=== PATIENT | male | born 1960 | race Caucasian/White ===

== ENCOUNTER → 2017-08-27 07:10 | Outpatient (CLI) | payer OTHER, SELFPAY ==
[2017-08-27 10:29] LABS: Anion Gap 9 (5-15); BUN 15 mg/dL (7-18); BUN/Creat Ratio 12.5 RATIO (10-20); Calcium,Total 8.6 mg/dL (8.5-10.1); Chloride 106 mmol/L (98-107); Cholesterol 247 mg/dL (200); EST Glomerular Filtration Rate 66 mL/min (>60); Est Glom Filt Rate - Afr Amer 80 mL/min (>60); Glucose 165 mg/dL (74-106); High Density Lipoprotein 24 mg/dL; PSA,Total - Annual Screen 0.76 ng/mL (0.00-4.00); Potassium 3.8 mmol/L (3.5-5.1); Sodium Level 141 mmol/L (136-145); Triglycerides 809 mg/dL
== END ==
PROVIDERS: Family Provider Family Medicine; PCP Family Medicine; Visit Provider Family Medicine
DX: E78.5 Hyperlipidemia, unspecified (principal); Z12.5 Encounter for screening for malignant neoplasm of prostate
CPT/HCPCS: 36415; 80048; 80061; 84153; G0103

== ENCOUNTER 2017-09-14 09:05 | Day surgery (SDC) | payer OTHER, SELFPAY ==
[2017-09-14] VITALS (10 sets, daily range): BP systolic 85–131; BP diastolic 56–86; PULSE 46–62; RESP 16; TEMP 36.3–36.8; O2SAT 93–99; BMI 36.8
--- NOTE | 2017-09-14 | COLBX_PTH ---
PATIENT: LINDSAY WEIR LOC: EN U#:[id number] AGE/SX: 57/M ROOM: RE09/14/[address]: Dr. Georges Arroyo MD : 1960 BED: DIS: 09/14/2017 SPEC #: [id number] RECD: 09/14/17 13:55 STATUS: SRINATH REZoe #: [id number] NEDRA: 09/14/17 00:[address]: Georges Arroyo DEPT: SURGICAL PATHOLOGY RECD BY: Porter Bragg ENTERED: 09/14/17 13:55 SP TYPE: COLON BX OTHR DR: Dr. Sohail Wolf MD Tissues: Cecum, NOS Procedures: Surgery Specimen Level IV HEADER OPERATION: Colonoscopy PRE-OP DIAGNOSIS: Change in bowel habit TISSUE SUBMITTED: Cecum polyp MICROSCOPIC DIAGNOSIS Cecum polyp, biopsy: Fragments of tubular adenoma. SJ:freddy 09/17/17 MICROSCOPIC DESCRIPTION Slides are reviewed. GROSS DESCRIPTION Received in fixative is one container labeled with the patient's name and designated cecum polyp. The specimen consists of multiple irregular fragments of light rodriguez soft tissue that in aggregate measure 0.5 x 0.5 x 0.1 cm. The specimen is totally submitted in one cassette. / SJ:freddy 09/14/17 TC:1 CPT: 68935
--- NOTE | 2017-09-14 10:45 | OP.PCM_ITS ---
Problem List (1) Change in bowel habit Status: Acute Report of Operation Date of Procedure: 09/14/17 Pre-Operative Diagnosis: Change of bowel habit Post-Operative Diagnosis: Sessile polyp of the cecum. Extensive descending and sigmoid diverticulosis Surgery/Procedure Performed:: Colonoscopy with hot snare polypectomy Description of Surgical Findings:: Timeout and informed consent was obtained. 57-year-old gentleman was taken to the endoscopy suite. He was placed in a left lateral decubitus position. Throughout the procedure in aliquots he received a total of 100 mg Demerol and 5 mg of Versed is intravenous sedation. Digital exam performed. Moderate hemorrhoidal changes. 2+ smooth prostate. Flexible colonoscope inserted the rectum advanced through a somewhat tortuous sigmoid colon extensively involved with diverticulosis. The scope was then fairly readily advanced to the transverse colon. In order to get the scope to go to the cecum the patient had to be placed supine and transabdominal pressure was required. The cecum ileocecal valve however was nicely achieved. Bowel prep was good there was still some liquid stool but that could be aspirated. As the scope was gently withdrawn from the base of the cecum a small sessile 8 mm polyp was noted. Photographs were obtained. Hot snare was used to resect and retrieved. Because of the location of the polyp being all the way over the cecum I last placed a hemostatic clip. That was nicely positioned. The scope was then further withdrawn from the ascending transverse descending and sigmoid colon. There was rather extensive diverticulosis of the descending and sigmoid colon. I do not see any signs of inflammation. The scope was retroflexed within the rectum some moderate hemorrhoidal changes noted no active bleeding. Excess fluid and air was aspirated free the procedure was completed with the patient tolerating it well. Impression Sessile polyp of the cecum Extensive descending and sigmoid diverticulosis The patient's previous colonoscopy was 2009. Next colonoscopy recommended in 3- 5 years pending pathology. Symptoms may be based upon some low-grade diverticulitis though that is not proven on today's examination. The patient will be followed expectantly. Cc: Dr. Sohail Wolf Medications were given at 1016. The procedure was started at 1018. The cecum was reached at 1027. The procedure was completed at 1038. Georges Arroyo M.D., F.A.C.S.
== END 2017-09-14 11:43 | disposition home or self-care (01) ==
LOC: EN 09:06 → AC 09:07
PROVIDERS: Family Provider Family Medicine; PCP Family Medicine; Visit Provider Surgery
PROC: 0DJD8ZZ Inspection of Lower Intestinal Tract, Via Natural or Artificial Opening Endoscopic (ICD-10-PCS; CPT 45378; principal; 2017-09-14 10:10)
DX: D12.0 Benign neoplasm of cecum (principal); K57.30 Diverticulosis of large intestine without perforation or abscess without bleeding; R19.4 Change in bowel habit; E11.9 Type 2 diabetes mellitus without complications
CPT/HCPCS: 45384; 88305; 99152; 99153; J7120

== ENCOUNTER 2017-10-30 10:31 | Outpatient (RCR) | payer OTHER, SELFPAY | END 2017-11-02 23:59 | LOC: NS 10:31 | PROVIDERS: Family Provider Family Medicine; PCP Family Medicine; Visit Provider Family Medicine | DX: E11.9 Type 2 diabetes mellitus without complications (principal); Z71.3 Dietary counseling and surveillance | CPT/HCPCS: 97802 ==

== ENCOUNTER 2017-11-30 08:18 | Outpatient (RCR) | payer OTHER, SELFPAY | END 2017-12-02 23:59 | LOC: NS 08:18 | PROVIDERS: Family Provider Family Medicine; PCP Family Medicine; Visit Provider Family Medicine | DX: E11.9 Type 2 diabetes mellitus without complications (principal); Z71.3 Dietary counseling and surveillance | CPT/HCPCS: 97803 ==

== ENCOUNTER → 2018-03-27 11:41 | Outpatient (CLI) | payer OTHER, SELFPAY ==
[2018-03-27 14:56] LABS: Anion Gap 7 (5-15); BUN 16 mg/dL (7-18); BUN/Creat Ratio 13.2 RATIO (10-20); Calcium,Total 9.1 mg/dL (8.5-10.1); Chloride 106 mmol/L (98-107); Cholesterol 242 mg/dL (200); Creatinine, Serum 1.21 mg/dL (0.70-1.30); EST Glomerular Filtration Rate 66 mL/min (>60); Est Glom Filt Rate - Afr Amer 79 mL/min (>60); Glucose 107 mg/dL (74-106); High Density Lipoprotein 39 mg/dL; Potassium 4.2 mmol/L (3.5-5.1); Sodium Level 142 mmol/L (136-145); Thyroid Stim Hormone (TSH) 1.69 uIU/mL (0.358-3.74); Triglycerides 344 mg/dL; Very Low Density Lipoprotein 69 mg/dL (5-40)
--- OUTSIDE RECORDS SUMMARY | 2018-05-29 09:41 | XMS RPT_ITS ---
:1960 Author Organization OHIP Care Team Providers Name Role Phone Sohail Wolf Attending Unavailable Sohail Wolf Referring Unavailable [facility] Unavailable Maryann, Sohail Attending Unavailable Maryann, Sohail Referring Unavailable [place] edwards, [facility] Unavailable Cebul, Georges Attending Unavailable Maryann, Sohail Referring Unavailable Ranney, [facility] Unavailable Cebul, Georges Attending Unavailable Cebul, Georges Referring Unavailable [facility] Unavailable Cebul, Georges Attending Unavailable Cebul, Georges Referring Unavailable [facility], [facility] Unavailable Cindyl, Georges Consulting Unavailable Andrey Lozano Attending Unavailable Ranney, Christophbenji Referring Unavailable [place], [facility] Unavailable Maryann, Sohail Attending Unavailable [facility], [facility] Unavailable Maryann, Sohail Attending Unavailable [place] edwards, [facility] Unavailable Ranbull, Sohail Attending Unavailable [place] edwards, [facility] Unavailable PROBLEMS PROBLEMS DATE TYPE CONDITION / CODE ATTENDING STATUS SOURCE 10/05/2017 Unknown R19.4 - Change Georges Arroyo Active [place] in bowel habit / Community R19.4(ICD-10) Hospital Repository PROCEDURES PROCEDURES No Procedure Records FoundRESULTS RESULTS TESTOSTERONE, SERUM TOTAL Collected: 03/27/2018 Status: F Source: [place] 11:55 AM [facility] REPOSITORY Order Comment: Order Date: 10/04/17 Order Info: 2986-8 - WENDY TYPE CODE TESTS RESULT OUT OF REFERENCE UNITS RANGE LAB L509.3000 ng/dL Testosterone Normal 429.13 Result Comment: NORMAL REFERENCE RANGES MALE AGE <50 123.06 - 813.86 ng/dL MALE AGE >50 89.98 - 780.10 ng/dL FEMALE PREMENOPAUSE AGE 21 - 60 9.01 - 47.94 ng/dL FEMALE POSTMENOPAUSE AGE 45 - 89 <7.00 - 45.62 ng/dL REFERENCE RANGE AND METHODOLOGY CHANGED 02/21/2017 Performed By: #### L509.3000, L500.2500, L500.4100, L501.9520 #### [place] [facility] [address] [place], [address] BASIC METABOLIC Collected: 03/27/2018 Status: F Source: [place] PROFILE (BMP) 11:55 AM [facility] REPOSITORY Order Comment: Order Date: 10/04/17 Order Info: 0667-1 - BMP Order Info: 73244-0 - LIPID Order Info: 3016-3 - TSH TYPE CODE TESTS RESULT OUT OF RANGE REFERENCE UNITS LAB L501.0100 74-106 mg/dL High GLU 107 Result Comment: Fasting Glucose result from 100 to 125 mg/dL suggests IMPAIRED HOMEOSTASIS per A.D.A. criteria. Please note revised GLUCOSE reference range effective 2017. LAB L501.1000 7-18 mg/dL Normal BUN 16 LAB L501.1100 0.70-1.30 mg/dL Normal CREAT,SERUM 1.21 Result Comment: The validity of the calculated GFR AND GFRAA in patients over 70 years has not been determined. Clinical correlation is essential. LAB L501.1110 >60 mL/min Normal EST GFR 66 Result Comment: Non- GFR Calc LAB L501.1115 >60 mL/min Normal EST GFR - AA 79 Result Comment: GFR Calc LAB L501.1300 10-20 RATIO Normal BUN/CRE 13.2 LAB L501.2200 8.5-10.1 mg/dL CA Normal 9.1 LAB L501.5300 136-145 mmol/L NA Normal 142 LAB L501.5600 3.5-5.1 mmol/L K Normal 4.2 LAB L501.5900 98-107 mmol/L CL Normal 106 LAB L501.6100 21.0-32.0 mmol/L Normal CO2 29.0 LAB L501.6200 5-15 Normal GAP 7 Performed By: #### L509.3000, L500.2500, L500.4100, L501.9520 #### [facility] [address] [place], [address] LIPID PROFILE Collected: 03/27/2018 Status: F Source: [place] 11:55 AM [facility] REPOSITORY Order Comment: Order Date: 10/04/17 Order Info: 0667-1 - BMP Order Info: 07288-4 - LIPID Order Info: 3016-3 - TSH TYPE CODE TESTS RESULT OUT OF RANGE REFERENCE UNITS LAB L501.4900 200 mg/dL High CHOL 242 Result Comment: <200 mg/dL Desirable 200-240 mg/dL Borderline >240 mg/dL High Risk LAB L501.5000 mg/dL High TRIG 344 Result Comment: The drugs N-Acetylcysteine and Metamizole may falsely depress this assay. Serum Triglycerides Reference Interval Normal <150 mg/dL Borderline high 150 - 199 mg/dL High 200 - 499 mg/dL Very High > or = 500 mg/dL LAB L501.6400 mg/dL Low HDL 39 Result Comment: The drugs N-Acetylcysteine and Metamizole may falsely depress this assay. Reference Range HDL <40 mg/dL Low HDL Cholesterol HDL >or= 60 mg/dL High HDL Cholesterol LAB L501.6500 0-130 mg/dL High LDL 134 LAB L501.6600 5-40 mg/dL High VLDL 69 Performed By: #### L509.3000, L500.2500, L500.4100, L501.9520 #### [facility] [address] [place], [address] THYROID STIM HORMONE Collected: 03/27/2018 Status: F Source: [place] (TSH) 11:55 AM [facility] REPOSITORY Order Comment: Order Date: 10/04/17 Order Info: 0667-1 - BMP Order Info: 98852-9 - LIPID Order Info: 3016-3 - TSH TYPE CODE TESTS RESULT OUT OF RANGE REFERENCE UNITS LAB L501.9520 0.358-3.74 uIU/mL Normal TSH 1.69 Performed By: #### L509.3000, L500.2500, L500.4100, L501.9520 #### [facility] [address] [facility] [place], [address] OPERATIVE REPORT Observed: 09/14/2017 Status: F Source: [place] 10:45 AM [facility] REPOSITORY [facility] Medical Records Department [address] [place] [address] Operative Report 09/14/17 1041 MR#: [id number] Acct: [id number] Name: LINDSAY WEIR Rep #: [id number] : 1960 57 From: Georges Arroyo MD PCP: Sohail Wolf MD Status: REG SDC Y Location: AC11-1 Problem List (1) Change in bowel habit Status: Acute Report of Operation Date of Procedure: 09/14/17 Pre-Operative Diagnosis: Change of bowel habit Post-Operative Diagnosis: Sessile polyp of the cecum. Extensive descending and sigmoid diverticulosis Surgery/Procedure Performed:: Colonoscopy with hot snare polypectomy Description of Surgical Findings:: Timeout and informed consent was obtained. 57-year-old gentleman was taken to the endoscopy suite. He was placed in a left lateral decubitus position. Throughout the procedure in aliquots he received a total of 100 mg Demerol and 5 mg of Versed is intravenous sedation. Digital exam performed. Moderate hemorrhoidal changes. 2+ smooth prostate. Flexible colonoscope inserted the rectum advanced through a somewhat tortuous sigmoid colon extensively involved with diverticulosis. The scope was then fairly readily advanced to the transverse colon. In order to get the scope to go to the cecum the patient had to be placed supine and transabdominal pressure was required. The cecum ileocecal valve however was nicely achieved. Bowel prep was good there was still some liquid stool but that could be aspirated. As the scope was gently withdrawn from the base of the cecum a small sessile 8 mm polyp was noted. Photographs were obtained. Hot snare was used to resect and retrieved. Because of the location of the polyp being all the way over the cecum I last placed a hemostatic clip. That was nicely positioned. The scope was then further withdrawn from the ascending transverse descending and sigmoid colon. There was rather extensive diverticulosis of the descending and sigmoid colon. I do not see any signs of inflammation. The scope was retroflexed within the rectum some moderate hemorrhoidal changes noted no active bleeding. Excess fluid and air was aspirated free the procedure was completed with the patient tolerating it well. Impression Sessile polyp of the cecum Extensive descending and sigmoid diverticulosis The patient's previous colonoscopy was 2009. Next colonoscopy recommended in 3-5 years pending pathology. Symptoms may be based upon some low-grade diverticulitis though that is not proven on today's examination. The patient will be followed expectantly. Cc: Dr. Sohail Wolf Medications were given at 1016. The procedure was started at 1018. The cecum was reached at 1027. The procedure was completed at 1038. Georges Arroyo M.D., F.A.C.S. 09/14/17 1045 <Electronically signed by Georges Arroyo MD> Date Georges Arroyo MD CC: Sohail Wolf MD; Georges Arroyo MD Signed COLON BIOPSY (CHOOSE Observed: 09/14/2017 Status: F Source: [place] SITE) 12:00 AM [facility] REPOSITORY Patient: LINDSAY WEIR : 1960 (57/M) Acct Num: [id number] Phys: Dina DELATORRE,Georges Unit Num: [id number] Loc: EN Specimen: [id number] Received: 09/14/17 - 1355 Spec Type: COLON BX TISSUES TISSUES: Cecum, NOS GROSS DESCRIPTION Received in fixative is one container labeled with the patient's name and designated cecum polyp. The specimen consists of multiple irregular fragments of light rodriguez soft tissue that in aggregate measure 0.5 x 0.5 x 0.1 cm. The specimen is totally submitted in one cassette. / SJ:freddy 09/14/17 TC:1 CPT: 59409 HEADER OPERATION: Colonoscopy PRE-OP DIAGNOSIS: Change in bowel habit TISSUE SUBMITTED: Cecum polyp MICROSCOPIC DESCRIPTION Slides are reviewed. MICROSCOPIC DIAGNOSIS Cec[place] polyp, biopsy: Fragments of tubular adenoma. SJ:freddy 09/17/17 Signed Justin Oliver 09/17/17 <signature on file> Performed By: #### PCOLBX #### [facility] [address] [place], [place] [address]shadi. [place], [place], [id number] SURGERY VISIT REPORT Observed: 09/08/2017 Status: F Source: [place] 10:13 AM [facility] REPOSITORY [facility] [address] [place], [place] [address] OFFICE VISIT Date of Service: 09/08/17 MR#: [id number] Acct: [id number] Name: LINDSAY WEIR Rep #: [id number] : 1960 Provider: Georges Arroyo MD Age/Sex: 57/M Location: [facility] Status: Signed Intake Vital Signs09/08/17 Height 5 ft 10 in 09/08/17 Weight: 262 lb 09/08/17 Body Mass Index (BMI) 37.5 Intake Visit Reasons: Inguinal Hernia Air Sampling And Monitoring Required: No Is patient in pain?: No Allergies cephalexin [From Keflex] Allergy (Mild, Verified 09/08/17 08:50) Rash penicillin Allergy (Mild, Uncoded 09/08/17 08:50) Anaphylaxis Medications metformin 500 mg tablet 500 mg PO QDAY tab 09/08/17 [History Confirmed 09/08/17] PFSH Medical History Diabetes (Acute) Surgical History H/O hernia repair (Acute) Social History Smoking Status: Never smoker alcohol intake: current alcohol intake frequency: holidays/special occasions only HPI HPI HPI: LINDSAY WEIR, is a 57 M who presents to the office today for surgical consultation regarding change of bowel habits and possible inguinal hernia. The patient's is Ela. The patient is a 57-year-old gentleman. Over the past 2-4 months he has had a change of bowel habits. Complains of excessive flatus. He also complains of the inability to assist with pushing to defecate. He has not noticed any bright red blood per rectum or melena. He has had a intentional weight loss. There was concern on physical exam that he might have a direct inguinal hernia adding to his difficulty. Of additional note is that the patient has significantly elevated triglycerides and more mildly elevated cholesterol. The patient also has recently been initiated on type 2 diabetes medication. 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 He had a maternal grandfather who had colon cancer. The patient did have a previous colonoscopy by Dr. Johnson approximately the year 2009. The patient's had a remote right inguinal hernia repaired by Dr. Lisandro Arroyo II. he distinctly remembers how that felt with bulging and he has not experienced the same recent phenomena. The patient is referred to me today by Dr. Sohail Wolf his primary care physician for surgical consultation regarding possible groin hernias as the source of the patient's change of bowel habits and inability to provide pressure with defecation. A written copy of my surgical consult and recommendations will be returned to Dr. Sohail Wolf ROS General General: Yes weight change and fatigue; no appetite, colon cancer, breast cancer or weakness HEENT HEENT: No difficulty swallowing, eye injury, eye surgery, swollen glands or hoarseness Endo Endocrine: Yes diabetes mellitus; no thyroid disease, thyroid cancer, Hair loss, heat intolerance or cold intolerance Skin Skin: No rash or changing moles Breast Breast: No left breast lump, right breast lump, nipple discharge, breast pain, abnormal mammogram, abnormal US or breast enlargement Musc Musculoskeletal: No back problems, arthritis, rheumatoid arthritis, gout or joint pain Cardio Cardiovascular: No murmur, pacemaker, heart disease, atrial fibrillation, high blood pressure, heart attack, heart stent, palpitations, shortness of breat with exertion or chest pain Psych Psychiatric: No depression, anxiety or hearing voices Resp Respiratory: No shortness of breath, No sleep apnea, No cough, No COPD, No asthma, No emphysema, No wheezing Gastro Gastrointestinal: No abdominal pain, No nausea or vomiting, No diarrhea, No constipation, No blood in stool, No acid reflux, No hemorrhoids, No ulcers, No gallbladder problem, No black,tarry stools Rod Hematologic: No blood thinners, No blood disorders, No bleeding, No anemia, No blood clots Neuro Neurologic: No system reviewed and no additional complaints, except as docu, No as per HPI, No abnormal walking, No abnormal hearing, No abnormal movements, No abnormal speech, No behavioral changes, No burning sensations, No confusion, No seizure-like activity, No unsteadiness, No dizziness, No localized weakness, No frequent falls, No headache(s), No lack of coordination, No loss of vision, No memory loss, No numbness, No other visual disturbances, No radiating pain, No restless legs, No sensory deficit, No fainting, No tingling, No tremor(s), No weakness, No other Exam Const General: cooperative, healthy appearing, comfortable, no acute distress Nutritional Appearance: obese Orientation: alert, awake, oriented x3 HENMT Head: normal to inspection Eyes General: appearance normal, both eyes and all related structures Neck Neck: normal visual inspection Chest Chest palpation AND inspection: normal inspection of the chest Breast Palpation: No nipple discharge Resp Effort AND Inspection: normal respiratory effort Auscultation: clear to auscultation bilaterally Cardio Rate: regular rate Rhythm: regular rhythm Heart Sounds: no murmurs GI Palpation: soft, no hepatosplenomegaly Auscultation: normal bowel sounds Other: : Slight given the right groin consistent with a small direct hernia. Atrophic testicle but descended. No focal tenderness. No mass. Left groin is more solid. Very slight weakness at the internal ring. Atrophic left testicle Musc Cervical Spine: normal cervical lordosis Skin General: no rashes or lesions noted Neuro Cranial Nerves: CN's II-XI intact bilaterally Extrem General: no clubbing, cyanosis or edema Psych Affect: normal affect Assessment AND Plan Problems 1. Change in bowel habit R19.4 Plan The patient has a slight given the right groin consistent with a direct hernia. He has slight weakness at the left internal ring consistent with a small left inguinal hernia. I do not believe however that these findings would correlate with the patient's bowel habit change. The patient states that he has had a previous right inguinal herniorrhaphy remotely. He denies fever or signs or symptoms that would suggest diverticulitis. He has not noticed any blood per rectum. However the change of bowel habits is actually his primary concern. I am recommending to him a colonoscopy with possible biopsy or polypectomy is indicated. He is aware of the technique, benefits, risks, alternatives. He has had an opportunity to ask and have questions answered. In an effort to expedite his care we will add him on to our next endoscopy list which is this coming week. I very much appreciate the kind opportunity of assisting with his surgical care. Cc: Dr. Sohail Arroyo M.D., F.A.C.S. Coding Level of Care Code Comprehensive,moderate Diagnoses Change in bowel habit R19.4 09/08/17 1013 <Electronically signed by Georges Arroyo MD> Date Georges Dean Signature: Date (if applicable) CC: Sohail Wolf MD BASIC METABOLIC Collected: 08/27/2017 Status: F Source: [place] PROFILE (BMP) 7:20 AM [facility] REPOSITORY Order Comment: Order Date: 07/16/17 Order Info: 0667-1 - BMP Order Info: 50945-5 - LIPID Order Info: 2857-1 - PSA TYPE CODE TESTS RESULT OUT OF RANGE REFERENCE UNITS LAB L501.0100 74-106 mg/dL High GLU 165 Result Comment: Fasting Glucose result greater than or equal to 126 mg/dL suggests DIABETES MELLITUS per A.D.A. criteria. Please note revised GLUCOSE reference range effective 2017. LAB L501.1000 7-18 mg/dL Normal BUN 15 LAB L501.1100 0.70-1.30 mg/dL Normal CREAT,SERUM 1.20 Result Comment: The validity of the calculated GFR AND GFRAA in patients over 70 years has not been determined. Clinical correlation is essential. LAB L501.1110 >60 mL/min Normal EST GFR 66 Result Comment: Non- GFR Calc LAB L501.1115 >60 mL/min Normal EST GFR - AA 80 Result Comment: GFR Calc LAB L501.1300 10-20 RATIO Normal BUN/CRE 12.5 LAB L501.2200 8.5-10.1 mg/dL CA Normal 8.6 LAB L501.5300 136-145 mmol/L NA Normal 141 LAB L501.5600 3.5-5.1 mmol/L K Normal 3.8 LAB L501.5900 98-107 mmol/L CL Normal 106 LAB L501.6100 21.0-32.0 mmol/L Normal CO2 26.0 LAB L501.6200 5-15 Normal GAP 9 Performed By: #### L500.2500, L500.4100, L501.9910 #### [facility] [address] [place], [address] LIPID PROFILE Collected: 08/27/2017 Status: F Source: [place] 7:20 AM [facility] REPOSITORY Order Comment: Order Date: 07/16/17 Order Info: 0667-1 - BMP Order Info: 54460-2 - LIPID Order Info: 2857-1 - PSA TYPE CODE TESTS RESULT OUT OF RANGE REFERENCE UNITS LAB L501.4900 200 mg/dL High CHOL 247 Result Comment: <200 mg/dL Desirable 200-240 mg/dL Borderline >240 mg/dL High Risk LAB L501.5000 mg/dL High TRIG 809 Result Comment: The drugs N-Acetylcysteine and Metamizole may falsely depress this assay. TRIGLYCERIDE IS GREATER THAN 400 mg/dL. LDL RESULT IS INVALID AND WILL NOT BE REPORTED. Serum Triglycerides Reference Interval Normal <150 mg/dL Borderline high 150 - 199 mg/dL High 200 - 499 mg/dL Very High > or = 500 mg/dL LAB L501.6400 mg/dL Low HDL 24 Result Comment: The drugs N-Acetylcysteine and Metamizole may falsely depress this assay. Reference Range HDL <40 mg/dL Low HDL Cholesterol HDL >or= 60 mg/dL High HDL Cholesterol LAB L501.6500 0-130 mg/dL Test Normal not performed LDL LAB L501.6600 5-40 mg/dL Test Normal not performed VLDL Performed By: #### L500.2500, L500.4100, L501.9910 #### [facility] [address] [place], [address] PSA,TOTAL - ANNUAL Collected: 08/27/2017 Status: F Source: [place] SCREEN 7:20 AM [facility] REPOSITORY Order Comment: Order Date: 07/16/17 Order Info: 0667-1 - BMP Order Info: 97405-5 - LIPID Order Info: 2857-1 - PSA TYPE CODE TESTS RESULT OUT OF RANGE REFERENCE UNITS LAB L501.9910 0.00-4.00 ng/mL Normal PSA,TOT 0.76 SCREEN Result Comment: This test was performed using the TPSA assay method for the [employer] chemistry system. Values obtained with different assay methods cannot be used interchangably. When changing PSA assays in the course of monitoring a patient, additional sequential testing should be carried out to confirm baseline values. Performed By: #### L500.2500, L500.4100, L501.9910 #### [facility] [address] [place], [address] ALLERGIES ALLERGIES DATE TYPE / CODE NAME / CODE REACTION SEVERITY SOURCE Drug cephalexin/F006 Rash [place] 8 Allergy/329092949( 886265(RXNORM) [facility]) Hospital Repository Miscellaneous penicillin Anaphylaxis [place] 8 Allergy/561780485( [facility] Hospital Repository ENCOUNTERS ENCOUNTERS ADMIT/DISCHARGE ACCOUNT ADMITTING ENCOUNTER LOCATION SOURCE NUMBER CLASS 03/27/2018 [id number] Ambulatory [place] 5 [facility] ing:MTLAB Repository 12/13/2017 [id number] Ambulatory [place] 0 [facility] ing:NS Repository 11/30/2017/ [id number] Ambulatory [place] 8 1 [facility] ing:NS Repository 10/30/2017/ [id number] Ambulatory [place] 8 9 [facility] ing:NS Repository 10/22/2017/ [id number] Ambulatory BMSBuilding:B [place] 8 8 MS.[facility] Repository 09/14/2017/ [id number] Ambulatory [place] 8 8 [facility] ing:EN Repository 09/14/2017 [id number] Ambulatory BMSBuilding:B [place] 0 MS.CF.[facility] Repository 09/08/2017/ [id number] Ambulatory BMSBuilding:B [place] 8 1 MS.[facility] Repository 08/27/2017 [id number] Ambulatory [place] 8 [facility] ing:MTLAB Repository PAYERS PAYERS ENCOUNTER GUARANTOR PAYER SUBSCRIBER SOURCE 03/27/2018 [place] Robert Primary Insurance:KAYLIE [id number] [facility] LUIS AMANDOB: [facility] [address], Number: [id number] [address]Bqz: [id number] Repository Date:4268-45-16MF [address]OX (TB) [id number], [place] [address]TL: CHECK WEBSITE 03/27/2018 Secondary NOT GIVENUNK [place] Insurance:SELF PAY [facility] Number: Effective Repository Date:2018-03-27 12/13/2017 LINDSAY D Primary LINDSAY D [place] [id number] CR Insurance:MEDICAL AUKERMANDOB: [place] [id number] [place] [address]Wyz: Number: Repository [id number] (HP) Date:6601-94-50ZO [address] [address]UL: 12/13/2017 Secondary NOT GIVENUNK [place] Insurance:SELF PAY [facility] Number: Effective Repository Date:2017-12-03 11/30/2017 LINDSAY D Primary LINDSAY D [place] [id number] CR Insurance:MEDICAL AUKERMANDOB: [address] [id number] [facility] [place] [address]Xrc: Number: Repository [id number] (HP) Date:8289-66-24AO [address] [address]XV: 11/30/2017 Secondary NOT GIVENUNK [place] Insurance:SELF PAY [facility] Number: Effective Repository Date:2017-11-03 10/30/2017 LINDSAY D Primary LINDSAY D [place] [id number] CR Insurance:MEDICAL AUKERMANDOB: [address] [id number] [facility] [place] [address]Kyr: Number: Repository [id number] (HP) Date:1236-95-30[address] [place] [address]NF: 10/30/2017 Secondary NOT GIVENUNK [place] Insurance:SELF PAY [facility] Number: Effective Repository Date:2017-10-29 10/22/2017 LINDSAY D Primary LINDSAY D [place] [id number] CR Insurance:MEDICAL AUKERMANDOB: [place] [id number] [address]Hxt: Number: Repository [id number] (HP) Date:9503-80-18LY [address] [address]KQ: 10/22/2017 Secondary NOT GIVENUNK [place] Insurance:SELF PAY [facility] Number: Effective Repository Date:2017-10-22 09/14/2017 LINDSAY D Primary LINDSAY D [place] [id number] CR Insurance:MEDICAL AUKERMANDOB: [address] [id number] [address]Mjb: Number: Repository [id number] (HP) Date:4760-27-14NZ [address] [address]BG: 09/14/2017 Secondary NOT GIVENUNK [place] Insurance:SELF PAY [facility] Number: Effective Repository Date:2017-09-10 09/14/2017 LINDSAY D Primary LINDSAY D [place] [id number] CR Insurance:MEDICAL AUKERMANDOB: [address] [id number] [facility] [address]Ybg: Number: Repository [id number] (HP) Date:7460-99-64EI [address] [address]VR: 09/14/2017 Secondary NOT GIVENUNK [place] Insurance:SELF PAY [facility] Number: Effective Repository Date:2017-09-14 09/08/2017 LINDSAY D Primary LINDSAY D [place] [id number] CR Insurance:MEDICAL AUKERMANDOB: [address] [id number] [facility] [address]Cye: Number: Repository [id number] (HP) Date:[id number] [address] [id number]: 09/08/2017 Secondary NOT GIVENUNK Pepe Insurance:SELF PAY [facility] Number: Effective Repository Date:2017-09-08 08/27/2017 LINDSAY Robert Primary LINDSAY Cantu [id number] CR Insurance:MEDICAL AUKERMANDOB: [address] [id number] [address]Yex: Number: Repository [id number] (HP) Date:[id number] [address] [place] [id number]: 08/27/2017 Secondary [place]HI [place] Insurance:SELF PAY [facility] Number: Effective Repository Date:2017-08-27
== END ==
PROVIDERS: Family Provider Family Medicine; PCP Family Medicine; Referring Provider Family Medicine; Visit Provider Family Medicine
DX: E11.9 Type 2 diabetes mellitus without complications (principal)
CPT/HCPCS: 36415; 80048; 80061; 84403; 84443

== ENCOUNTER → 2018-06-25 09:46 | Outpatient (CLI) | payer OTHER, SELFPAY ==
[2018-06-26 16:49] LABS: Rubeola IgG Ab 76.2 AU/mL (Immune >29.9)
== END ==
PROVIDERS: Family Provider Family Medicine; PCP Family Medicine; Referring Provider Family Medicine; Visit Provider Family Medicine
DX: Z11.59 Encounter for screening for other viral diseases (principal)
CPT/HCPCS: 36415; 86765

== ENCOUNTER → 2018-09-19 08:08 | Outpatient (CLI) | payer OTHER, SELFPAY ==
[2017-09-14 09:38] VITALS: BMI 36.8
[2018-09-19 10:35] LABS: ALB/GLOB Ratio 1.2 RATIO (0.9-2.4); AST(SGOT) 19 U/L (15-37); Alanine Aminotransfer ALT/SGPT 32 U/L (16-61); Albumin, Serum 3.8 g/dL (3.2-5.0); Alkaline Phosphatase 39 U/L (45-117); Anion Gap 5 (5-15); BUN 16 mg/dL (7-18); BUN/Creat Ratio 12.7 RATIO (10-20); Calcium,Total 8.8 mg/dL (8.5-10.1); Chloride 106 mmol/L (98-107); Cholesterol 230 mg/dL (200); Creatinine, Serum 1.26 mg/dL (0.70-1.30); EST Glomerular Filtration Rate 62 mL/min (>60); Est Glom Filt Rate - Afr Amer 76 mL/min (>60); Globulin 3.1 g/dL (2.2-4.2); Glucose 116 mg/dL (74-106); High Density Lipoprotein 38 mg/dL; Potassium 4.1 mmol/L (3.5-5.1); Protein, Total 6.9 g/dL (6.4-8.2); Sodium Level 138 mmol/L (136-145); Triglycerides 305 mg/dL; Very Low Density Lipoprotein 61 mg/dL (5-40)
== END ==
PROVIDERS: Family Provider Family Medicine; PCP Family Medicine; Referring Provider Family Medicine; Visit Provider Family Medicine
DX: E11.9 Type 2 diabetes mellitus without complications (principal); R68.82 Decreased libido
CPT/HCPCS: 36415; 80053; 80061; 84403

== ENCOUNTER → 2019-03-18 07:09 | Outpatient (CLI) | payer OTHER, SELFPAY ==
[2019-03-18 10:45] LABS: ALB/GLOB Ratio 1.1 RATIO (0.9-2.4); AST(SGOT) 38 U/L (15-37); Alanine Aminotransfer ALT/SGPT 66 U/L (16-61); Albumin, Serum 3.6 g/dL (3.2-5.0); Alkaline Phosphatase 46 U/L (45-117); Anion Gap 3 (5-15); BUN 16 mg/dL (7-18); BUN/Creat Ratio 11.9 RATIO (10-20); Calcium,Total 9.1 mg/dL (8.5-10.1); Chloride 106 mmol/L (98-107); Cholesterol 240 mg/dL (200); Creatinine, Serum 1.35 mg/dL (0.70-1.30); EST Glomerular Filtration Rate 58 mL/min (>60); Est Glom Filt Rate - Afr Amer 70 mL/min (>60); Globulin 3.4 g/dL (2.2-4.2); Glucose 154 mg/dL (74-106); High Density Lipoprotein 36 mg/dL; PSA,Total - Annual Screen 0.95 ng/mL (0.00-4.00); Potassium 4.2 mmol/L (3.5-5.1); Sodium Level 138 mmol/L (136-145); Triglycerides 412 mg/dL
== END ==
PROVIDERS: Family Provider Family Medicine; PCP Family Medicine; Referring Provider Family Medicine; Visit Provider Family Medicine
DX: E11.9 Type 2 diabetes mellitus without complications (principal); E78.5 Hyperlipidemia, unspecified; Z12.5 Encounter for screening for malignant neoplasm of prostate
CPT/HCPCS: 36415; 80053; 80061; 84153; G0103

== ENCOUNTER → 2019-06-18 08:12 | Outpatient (CLI) | payer OTHER, SELFPAY ==
[2017-09-14 09:38] VITALS: BMI 36.8
[2019-06-18 10:23] LABS: ALB/GLOB Ratio 1.2 RATIO (0.9-2.4); AST(SGOT) 26 U/L (15-37); Alanine Aminotransfer ALT/SGPT 53 U/L (16-61); Alkaline Phosphatase 68 U/L (45-117); Anion Gap 5 (5-15); BUN 13 mg/dL (7-18); BUN/Creat Ratio 10.8 RATIO (10-20); Chloride 105 mmol/L (98-107); Cholesterol 139 mg/dL (200); EST Glomerular Filtration Rate 66 mL/min (>60); Est Glom Filt Rate - Afr Amer 80 mL/min (>60); Globulin 3.2 g/dL (2.2-4.2); Glucose 119 mg/dL (74-106); High Density Lipoprotein 36 mg/dL; Potassium 3.8 mmol/L (3.5-5.1); Protein, Total 7.2 g/dL (6.4-8.2); Sodium Level 139 mmol/L (136-145); Triglycerides 241 mg/dL; Very Low Density Lipoprotein 48 mg/dL (5-40)
[2019-06-18 10:26] LABS: Hemoglobin A1c 6.6 % (4.2-6.3)
== END ==
PROVIDERS: PCP Family Medicine; Referring Provider Family Medicine; Visit Provider Family Medicine
DX: E78.5 Hyperlipidemia, unspecified (principal); E11.9 Type 2 diabetes mellitus without complications; R79.89 Other specified abnormal findings of blood chemistry
CPT/HCPCS: 36415; 80053; 80061; 83036

== ENCOUNTER → 2019-12-15 07:01 | Outpatient (CLI) | payer OTHER, SELFPAY ==
[2019-12-15 10:31] LABS: Anion Gap 5 (5-15); BUN 16 mg/dL (7-18); BUN/Creat Ratio 13.2 RATIO (10-20); Calcium,Total 8.7 mg/dL (8.5-10.1); Chloride 108 mmol/L (98-107); Cholesterol 168 mg/dL (200); Creatinine, Serum 1.21 mg/dL (0.70-1.30); EST Glomerular Filtration Rate 65 mL/min (>60); Est Glom Filt Rate - Afr Amer 79 mL/min (>60); Glucose 106 mg/dL (74-106); High Density Lipoprotein 44 mg/dL; Potassium 3.8 mmol/L (3.5-5.1); Sodium Level 141 mmol/L (136-145); Triglycerides 238 mg/dL; Very Low Density Lipoprotein 48 mg/dL (5-40)
== END ==
PROVIDERS: PCP Family Medicine; Referring Provider Family Medicine; Visit Provider Family Medicine
DX: E11.9 Type 2 diabetes mellitus without complications (principal)
CPT/HCPCS: 36415; 80048; 80061

== ENCOUNTER → 2019-12-26 15:03 | Outpatient (CLI) | payer OTHER, SELFPAY ==
[2017-09-14 09:38] VITALS: BMI 36.8
[2019-12-26 18:03] LABS: Absolute Lymphocyte Count 1.71 X10^3/uL (0.83-4.51); Absolute Neutrophil Count 3.3 X10^3/uL (2.0-7.7); Basophil# 0.07 X10^3/uL; Basophil% 1.2 % (0-1); Eosinophils% 5.1 % (0-5); Hematocrit 43.2 % (40-54); Hemoglobin 14.1 g/dL (13.0-16.5); Lymphocyte # 1.71 X10^3/ul (4.0); Lymphocyte % 29.1 % (19-41); Mean Corp Hgb Conc 32.6 g/dL (32-36); Mean Corpuscular Hgb 29.6 pg (27.0-32.0); Mean Corpuscular Volume 90.8 fL (80-94); Mean Platelet Vol. 10.5 fl (6.2-12.0); Monocyte# 0.52 X10^3/uL; Monocyte% 8.8 % (0-10); NRBC Flagged by Analyzer 0 % (0-5); Neutrophil # 3.26 X10^3/uL (2.7-7.7); Neutrophil % 55.5 % (47-70); Platelet Count 177 K/mm3 (150-450); RBC Distribution Width CV 12.5 % (11.6-14.6); RBC Distribution Width SD 41.4 fl (35.1-43.9); Red Blood Count 4.76 M/mm3 (4.6-6.2); White Blood Count 5.9 K/mm3 (4.4-11.0)
[2019-12-26 18:31] LABS: Thyroid Stim Hormone (TSH) 1.45 uIU/mL (0.358-3.74)
[2019-12-29 20:39] LABS: Vitamin B12 330 pg/mL (211-911); Vitamin D,25 Hydroxy 23.3 ng/mL
== END ==
PROVIDERS: PCP Family Medicine; Referring Provider Family Medicine; Visit Provider Family Medicine
DX: R03.0 Elevated blood-pressure reading, without diagnosis of hypertension (principal); R53.83 Other fatigue
CPT/HCPCS: 36415; 82306; 82533; 82607; 84403; 84443; 85025

== ENCOUNTER → 2020-06-15 07:16 | Outpatient (CLI) | payer OTHER, SELFPAY ==
[2020-06-15 10:21] LABS: Vitamin B12 660 pg/mL (211-911); Vitamin D,25 Hydroxy 30.6 ng/mL
== END ==
PROVIDERS: PCP Family Medicine; Referring Provider Family Medicine; Visit Provider Family Medicine
DX: E55.9 Vitamin D deficiency, unspecified (principal); E53.8 Deficiency of other specified B group vitamins
CPT/HCPCS: 36415; 82306; 82607

== ENCOUNTER → 2020-12-15 10:14 | Outpatient (CLI) | payer OTHER, SELFPAY ==
[2020-12-15 12:43] LABS: ALB/GLOB Ratio 1.1 RATIO (0.9-2.4); AST(SGOT) 23 U/L (15-37); Alanine Aminotransfer ALT/SGPT 50 U/L (16-61); Albumin, Serum 3.7 g/dL (3.2-5.0); Alkaline Phosphatase 58 U/L (45-117); Anion Gap 6 (5-15); BUN 14 mg/dL (7-18); BUN/Creat Ratio 10.6 RATIO (10-20); Calcium,Total 9.1 mg/dL (8.5-10.1); Chloride 105 mmol/L (98-107); Cholesterol 138 mg/dL (200); Creatinine, Serum 1.32 mg/dL (0.70-1.30); EST Glomerular Filtration Rate 59 mL/min (>60); Est Glom Filt Rate - Afr Amer 71 mL/min (>60); Globulin 3.5 g/dL (2.2-4.2); Glucose 201 mg/dL (74-106); High Density Lipoprotein 37 mg/dL; PSA,Total - Annual Screen 0.81 ng/mL (0.00-4.00); Potassium 4.2 mmol/L (3.5-5.1); Protein, Total 7.2 g/dL (6.4-8.2); Sodium Level 138 mmol/L (136-145); Thyroid Stim Hormone (TSH) 1.55 uIU/mL (0.358-3.74); Triglycerides 268 mg/dL; Very Low Density Lipoprotein 54 mg/dL (5-40)
[2020-12-15 15:38] LABS: Vitamin B12 1076 pg/mL (211-911); Vitamin D,25 Hydroxy 27.4 ng/mL
== END ==
PROVIDERS: Physician Assistant; PCP Family Medicine; Referring Provider Family Medicine; Visit Provider Family Medicine
DX: R05.9 Cough, unspecified (principal); E55.9 Vitamin D deficiency, unspecified; E11.9 Type 2 diabetes mellitus without complications; Z12.5 Encounter for screening for malignant neoplasm of prostate
CPT/HCPCS: 36415; 80053; 80061; 82306; 82607; 84153; 84403; 84443; 87635; U0005; G0103; U0003

== ENCOUNTER 2021-03-15 07:06 | Outpatient (CLI) | payer OTHER, SELFPAY ==
[2021-03-15 10:24] LABS: Vitamin B12 890 pg/mL (211-911); Vitamin D,25 Hydroxy 31.9 ng/mL
[2021-03-15 10:31] LABS: Anion Gap 10 (5-15); BUN 12 mg/dL (7-18); BUN/Creat Ratio 10.5 RATIO (10-20); Calcium,Total 9.1 mg/dL (8.5-10.1); Chloride 104 mmol/L (98-107); Cholesterol 152 mg/dL (200); Creatinine, Serum 1.14 mg/dL (0.70-1.30); EST Glomerular Filtration Rate 69 mL/min (>60); Est Glom Filt Rate - Afr Amer 84 mL/min (>60); Glucose 169 mg/dL (74-106); High Density Lipoprotein 35 mg/dL; Potassium 3.9 mmol/L (3.5-5.1); Sodium Level 140 mmol/L (136-145); Triglycerides 310 mg/dL; Very Low Density Lipoprotein 62 mg/dL (5-40)
== END 2021-03-15 23:59 | disposition short-term general hospital (02) ==
LOC: MTLAB 07:08
PROVIDERS: PCP Family Medicine; Referring Provider Family Medicine; Visit Provider Family Medicine
DX: Z00.00 Encounter for general adult medical examination without abnormal findings (principal)
CPT/HCPCS: 36415; 80048; 80061; 82306; 82607

== ENCOUNTER → 2021-09-13 | Outpatient (CLI) | payer BC, SELFPAY ==
[2021-09-13 10:52] LABS: Vitamin B12 931 pg/mL (211-911); Vitamin D,25 Hydroxy 45.6 ng/mL
[2021-09-13 11:13] LABS: ALB/GLOB Ratio 1.2 RATIO (0.9-2.4); AST(SGOT) 28 U/L (15-37); Alanine Aminotransfer ALT/SGPT 50 U/L (16-61); Albumin, Serum 3.7 g/dL (3.2-5.0); Alkaline Phosphatase 55 U/L (45-117); Anion Gap 5 (5-15); BUN 15 mg/dL (7-18); BUN/Creat Ratio 11.8 RATIO (10-20); Chloride 108 mmol/L (98-107); Cholesterol 165 mg/dL (200); Creatinine, Serum 1.27 mg/dL (0.70-1.30); EST Glomerular Filtration Rate 61 mL/min (>60); Est Glom Filt Rate - Afr Amer 74 mL/min (>60); Glucose 184 mg/dL (74-106); High Density Lipoprotein 38 mg/dL; Potassium 4.1 mmol/L (3.5-5.1); Protein, Total 6.7 g/dL (6.4-8.2); Sodium Level 140 mmol/L (136-145); Triglycerides 210 mg/dL; Very Low Density Lipoprotein 42 mg/dL (5-40)
== END | disposition home or self-care (01) ==
LOC: MTLAB 07:56
PROVIDERS: PCP Family Medicine; Referring Provider Family Medicine; Visit Provider Family Medicine
DX: E55.9 Vitamin D deficiency, unspecified (principal); E53.8 Deficiency of other specified B group vitamins; Z12.5 Encounter for screening for malignant neoplasm of prostate; E78.5 Hyperlipidemia, unspecified
CPT/HCPCS: 80053; 80061; 82306; 82607; 84153; G0103

== ENCOUNTER → 2022-03-01 | Outpatient (CLI) | payer BC, SELFPAY ==
[2022-03-01 10:55] LABS: Anion Gap 5 (5-15); BUN 13 mg/dL (7-18); BUN/Creat Ratio 10.7 RATIO (10-20); Calcium,Total 8.8 mg/dL (8.5-10.1); Chloride 109 mmol/L (98-107); Cholesterol 108 mg/dL (200); Creatinine, Serum 1.22 mg/dL (0.70-1.30); EST Glomerular Filtration Rate 64 mL/min (>60); Est Glom Filt Rate - Afr Amer 77 mL/min (>60); Glucose 141 mg/dL (74-106); High Density Lipoprotein 24 mg/dL; Potassium 4.2 mmol/L (3.5-5.1); Sodium Level 141 mmol/L (136-145); Triglycerides 142 mg/dL; Very Low Density Lipoprotein 28 mg/dL (5-40)
== END | disposition home or self-care (01) ==
LOC: MTLAB 07:34
PROVIDERS: PCP Family Medicine; Referring Provider Family Medicine; Visit Provider Family Medicine
DX: E11.9 Type 2 diabetes mellitus without complications (principal)
CPT/HCPCS: 36415; 80048; 80061

== ENCOUNTER → 2022-06-13 | Outpatient (CLI) | payer BC, SELFPAY ==
--- NOTE | 2022-06-13 07:51 | CT_ITS ---
EXAM: CT MAXILLOFACIAL SINUSES WITHOUT INTRAVENOUS CONTRAST CLINICAL INDICATION: CHORNIC SINUSITIS TECHNIQUE: Helically acquired images were obtained of the maxillofacial sinuses without intravenous contrast. This CT exam was performed using one or more of the following dose reduction techniques: automated exposure control, adjustment of the mA and/or kV according to patient size, and/or use of iterative reconstruction technique. This report was created using [employer] Protect report generation technology. COMPARISON: None. FINDINGS: MAXILLARY SINUSES: See below. SPHENOID SINUSES: See below. FRONTAL SINUSES: See below. ETHMOID AIR CELLS: There is opacification of multiple ethmoid air cells. NASAL CAVITY/SEPTUM: Nasal septum is midline. Nasal turbinates are unremarkable. BONES/JOINTS: Anterior cranial fossa is unremarkable. ORBITS: Unremarkable. DENTAL: Unremarkable as visualized. No periodontal osseous erosion. BRAIN AND EXTRA-AXIAL SPACES: There is callosal thickening in the left frontal, right maxillary and bilateral sphenoid sinuses with no air-fluid levels. CT/Sinus/Facial Bone IMPRESSION: Mucosal thickening greatest in the right maxillary and left frontal sinuses. There is also mucosal thickening in the sphenoid sinuses with opacification of multiple ethmoid air cells compatible with chronic sinusitis. No air-fluid levels are identified. Electronically Signed: Loc Ventura MD at 23:07 EDT ,
== END | disposition home or self-care (01) ==
LOC: CT 07:51
PROVIDERS: PCP Family Medicine; Referring Provider Otolaryngology; Visit Provider Otolaryngology
DX: J32.8 Other chronic sinusitis (principal); J33.0 Polyp of nasal cavity
CPT/HCPCS: 70486

== ENCOUNTER 2022-08-07 07:13 | Day surgery (SDC) | payer BC, SELFPAY ==
[2022-08-03 13:41] LABS: Hematocrit 43.1 % (40-54); Hemoglobin 14.4 g/dL (13.0-16.5); Mean Corp Hgb Conc 33.4 g/dL (32-36); Mean Corpuscular Hgb 29.8 pg (27.0-32.0); Mean Corpuscular Volume 89.2 fL (80-94); Mean Platelet Vol. 9.9 fl (6.2-12.0); Platelet Count 161 K/mm3 (150-450); RBC Distribution Width CV 13.2 % (11.6-14.6); RBC Distribution Width SD 43.4 fl (35.1-43.9); Red Blood Count 4.83 M/mm3 (4.6-6.2)
[2022-08-03 14:00] LABS: Anion Gap 8 (5-15); BUN 13 mg/dL (7-18); BUN/Creat Ratio 10.2 RATIO (10-20); Calcium,Total 8.9 mg/dL (8.5-10.1); Chloride 108 mmol/L (98-107); Creatinine, Serum 1.27 mg/dL (0.70-1.30); EST Glomerular Filtration Rate 61 mL/min (>60); Est Glom Filt Rate - Afr Amer 74 mL/min (>60); Glucose 220 mg/dL (74-106); Sodium Level 140 mmol/L (136-145)
[2022-08-03 14:08] LABS: Hemoglobin A1c 6.9 % (3.8-5.6)
--- NOTE | 2022-08-04 | ETH_PTH ---
PATIENT: LINDSAY WEIR LOC: [facility] [place] U#:[id number] AGE/SX: 62/M ROOM: RE08/07/[address]: Dr. Freddy Gunn MD : 1960 BED: DIS: 08/07/2022 SPEC #: [id number] RECD: 08/07/22 12:15 STATUS: SRINATH REQ #: [id number] NEDRA: 08/04/22 00:[address]: Freddy Gunn DEPT: SURGICAL PATHOLOGY RECD BY: Porter Bragg ENTERED: 08/07/22 12:15 SP TYPE: ETH TISS OTHR DR: Dr. Sohail Wolf MD Tissues: A - Ethmoid sinus, NOS B - Ethmoid sinus, NOS Procedures: Decalcification bone/plaque Surgery Specimen Level IV HEADER OPERATION: Functional endoscopic sinus surgery with Navigation PRE-OP DIAGNOSIS: Chronic rhinitis, nasal congestion, chronic sinusitis, polyp of nasal cavity TISSUE SUBMITTED: A ? Content from right sinus, B - Content from left sinus MICROSCOPIC DIAGNOSIS A. Right sinus contents: Fragments of respiratory mucosa with chronic inflammation and bone. B. Left sinus contents: Fragments of respiratory mucosa with chronic inflammation and bone. SJ:freddy 08/09/2022 MICROSCOPIC DESCRIPTION Slides are reviewed. GROSS DESCRIPTION A - Received in fixative is one container labeled with the patient's name and designated contents of right sinus. The specimen consists of multiple irregular and gritty fragments of pink-rodriguez soft tissue that in aggregate measure 2.5 x 1.5 x 0.1 cm. The specimen is totally submitted in one cassette after decalcification. B - Received in fixative is one container labeled with the patient's name and designated contents of left sinus. The specimen consists of multiple irregular and gritty fragments of pink-rodriguez soft tissue that in aggregate measure 2.5 x 2.0 x 0.1 cm. The specimen is totally submitted in one cassette after decalcification. / AM:freddy 08/07/2022 TC:3 CPT:92613 x2, 58398 x2
[2022-08-07] MEDS: Lactated Ringers 1,000 ML 15 ML IV ×2 (07:43→10:09)
[2022-08-07] MEDS: Oxymetazoline 0.05% 1 SPRAY SPRAY.BTL NASAL (07:44)
[2022-08-07 07:46] VITALS: BP 138/90; PULSE 64; RESP 18; TEMP 36.3; O2SAT 98; BMI 37.0
[2022-08-07 08:17] LABS: Bedside Glucose 164 mg/dL (74-106)
--- NOTE | 2022-08-07 08:58 | PCM.DC.SUM ---
Providers Primary Care Physician: Dr. Juan Wolf MD Reason For Visit: FESS W NAVIGATION Medications at Discharge Home Medications atorvastatin 20 mg tablet 20 mg PO DAILY 10/05/20 metformin 500 mg tablet,extended release 24 hr 500 mg PO BID 10/05/20 semaglutide 7 mg tablet (Rybelsus) 7 mg PO DAILY 08/01/22 Weight / BMI Weight Weight: 117.027 kg Body Mass Index (BMI) 37.0 ABG / Lab / Microbiology Data Result Diagrams: 08/03/22 13:15 08/03/22 13:15 Laboratory: Laboratory Results - last 24 hr 08/07/22 07:35: POC Glucose 164 H D/C Instructions Discharge Diet: No restrictions Additional Activity Instructions: No nose blowing Additional Instructions: Start antibiotic tonight. Start irrigation tomorrow morning. Irrigate 4x/day Please Follow Up With: Freddy Gunn MD When: next week Meaningful Use Info Meaningful Use Diagnoses (Choose all that apply): None applicable Discharge Plan Admission Attending Provider: Freddy Gunn Primary Care Provider: Juan Wolf Discharge Orders/Prescriptions Prescriptions: No Action atorvastatin 20 mg tablet 20 mg PO DAILY metformin 500 mg tablet extended release 24 hr 500 mg PO BID Label Comments: TAKE 1 TABLET BY MOUTH TWICE A DAY Rybelsus 7 mg Tablet 7 mg PO DAILY Referrals / Follow Up: Juan Wolf MD [Primary Care Provider] - Disposition Disposition (needs filled in before D/C Order can be placed): Home, Self Care
--- NOTE | 2022-08-07 09:00 | PCM.OPRPT ---
Report of Operation Date of Procedure: 08/07/22 Pre-Operative Diagnosis: chronic sinusitis Post-Operative Diagnosis: same Surgery/Procedure Performed:: bilateral total ethmoidectomy right maxillary antrostomy with tissue removal left maxillary antrostomy Surgeon: Freddy Gunn Type of Anesthesia: General Anesthesiologist: Rafat Cat Estimated Blood Loss (mL): minimal Description of Procedure: The patient was taken to the operating room on 08/07/2022. The patient was placed in the supine position on the operating table. The patient was given sufficient general endotracheal anesthesia. The head of bed was elevated 30 degrees. The navigation system was placed and verified per protocol and found to be accurate. 0 and 30 degrees rigid nasal endoscopes were used throughout the entire case. The middle turbinate uncinate process and polyps were injected with 1% lidocaine with epinephrine bilaterally. The right middle turbinate was medialized with a [place] elevator. Polyp was removed from the middle meatus using a sinus shaver. A ball-tipped sinus seeker was placed into the patient's maxillary sinus. The antrostomy was created with a shaver. Tissue was removed from the maxillary sinus using a microdebrider with a 30 degree rigid nasal endoscope for visualization. Next, the ethmoid was opened with a small curette. Anterior and posterior ethmoidectomy were then carried out using curette, sinus shaver and 45 degree Blakesley Daisy forceps. Ethmoid cells were verified for relation to the skull base and orbit prior to being entered (with the navigation system). I placed pressure on the right globe. There was no movement of any tissue in the sinus cavity. I then placed Afrin pledgets into the sinonasal cavity. Next attention was turned to the left side. The middle turbinate was medialized with a [place] elevator. A large polyp was removed from the middle meatus using a sinus shaver. The maxillary antrostomy was created with a shaver by removing this polyp. The antrostomy was widened with Guicho-Cut forceps. The ethmoid was opened with a small curette. Anterior and posterior ethmoidectomy were then carried out using a sinus shaver, curette and Blakesley Daisy forceps. Ethmoid cells were verified for relation to the skull base and orbit prior to being entered (with the navigation system). I placed pressure on the right globe. There was no movement of any tissue in the sinus cavity. Hemostasis was then achieved using Afrin pledgets. The pledgets were then removed bilaterally and Hollie powder was applied bilaterally for absolute hemostasis. I used sparing suction cautery on the left septum. The procedure was then terminated. The patient was then awoken and brought to the recovery room in stable condition. blood loss 5 cc, replacement none. Sponge, needle, instrument count were correct at the end of the procedure.
[2022-08-07] MEDS: Lidocaine 1% /Epi 1:100 (20ml) 20 ML Vial (09:15)
[2022-08-07] MEDS: Oxymetazoline 0.05% 1 SPRAY SPRAY.BTL 15 SPRAY (09:15)
[2022-08-07 10:01] VITALS: BP 138/90; BP 148/69; PULSE 63; RESP 18; TEMP 36.3; O2SAT 97
[2022-08-07 10:15] VITALS: BP 138/90; BP 154/81; PULSE 53; RESP 16; O2SAT 96
[2022-08-07 10:26] VITALS: BP 138/90; BP 163/91; PULSE 57; RESP 16; TEMP 36.1; O2SAT 94
[2022-08-07 10:31] LABS: Bedside Glucose 171 mg/dL (74-106)
[2022-08-07 10:33] VITALS: BP 138/90
[2022-08-07 11:31] LABS: Thyroid Stim Hormone (TSH) 1.84 uIU/mL (0.358-3.74)
== END 2022-08-07 11:06 | disposition home or self-care (01) ==
LOC: SDC 07:13 → AC 07:14
PROVIDERS: Anesthesiology; PCP Family Medicine; Referring Provider Otolaryngology; Visit Provider Otolaryngology
PROC: (CPT 31267; principal; 2022-08-07 08:15)
DX: J31.0 Chronic rhinitis (principal); E11.9 Type 2 diabetes mellitus without complications; R09.81 Nasal congestion; J32.8 Other chronic sinusitis; J33.0 Polyp of nasal cavity; E78.00 Pure hypercholesterolemia, unspecified
CPT/HCPCS: 31267; 30110; 31255; 00160; 36415; 80048; 82962; 83036; 84443; 85027; 88305; 88311; 93005; J7120

== ENCOUNTER → 2022-08-10 | Outpatient (CLI) | payer BC, SELFPAY ==
[2022-08-10 11:08] LABS: PSA,Total - Annual Screen 0.75 ng/mL (0.00-4.00); Thyroid Stim Hormone (TSH) 2.17 uIU/mL (0.358-3.74)
[2022-08-10 12:57] LABS: Vitamin B12 863 pg/mL (211-911)
== END | disposition home or self-care (01) ==
LOC: MTLAB 07:10
PROVIDERS: PCP Family Medicine; Referring Provider Family Medicine; Visit Provider Family Medicine
DX: R53.83 Other fatigue (principal); Z12.5 Encounter for screening for malignant neoplasm of prostate; E53.8 Deficiency of other specified B group vitamins
CPT/HCPCS: 36415; 82607; 84153; 84443; G0103

== ENCOUNTER → 2022-08-23 | Outpatient (CLI) | payer BC, SELFPAY ==
--- NOTE | 2022-08-23 07:49 | ECHOD_ITS ---
Reason For Study: Murmur Procedure This was a 2D Doppler, Color Flow transthoracic echocardiogram. Exam performed in department. Left Ventricle Normal LV size. Mild concentric left ventricular hypertrophy. The left ventricular ejection fraction is 65 %. Normal diastology for age. Right Ventricle Normal right ventricle. Atria The left and right atria are normal. Mitral Valve Mild (1+) mitral valve insufficiency. Tricuspid Valve Mild (1+) tricuspid valve insufficiency. Normal pulmonary artery pressure. Aortic Valve Mild aortic stenosis. Mild (1+) aortic valve insufficiency. Pulmonic Valve The pulmonic valve is not well visualized. Great Vessels Mildly dilated aortic root. Pericardium/Pleural No pericardial effusion. MMode/2D Measurements & Calculations LVIDd: 4.9 cm IVSd: 1.3 cm LVOT diam: 2.2 cm LVIDs: 3.1 cm LVPWd: 1.4 cm LVOT area: 3.9 cm2 RVDd: 4.4 cm FS: 35.9 % Ao root diam: 3.7 cm LAV(MOD-bp): 53.7 ml LVAd ap4: 38.1 cm2 LA dimension: 4.4 cm LAV(MOD-bp) Indexed: 23.1 ml/m2 LVLd ap4: 9.2 cm LAV(MOD-sp2): 53.6 ml EDV(MOD-sp4): 126.1 ml LAV(MOD-sp4): 45.5 ml EDV(sp4-el): 134.1 ml LVAs ap4: 21.0 cm2 LVLs ap4: 7.8 cm ESV(MOD-sp4): 46.4 ml ESV(sp4-el): 48.1 ml EF(MOD-sp4): 63.2 % EF(sp4-el): 64.2 % SV(MOD-sp4): 79.7 ml SV(sp4-el): 86.0 ml Aortic Valve Planimetry: 1.3 cm2 LA A4 area: 15.8 cm2 TAPSE: 1.9 cm Time Measurements MV dec time: 0.24 sec Doppler Measurements & Calculations MV E max torsten: 72.7 cm/sec Lat Peak E' Torsten: 9.2 cm/sec Med Peak E' Torsten: 9.6 cm/sec MV A max torsten: 72.5 cm/sec E/E' lat: 7.9 E/E' med: 7.6 MV E/A: 1.0 MV V2 max: 75.0 cm/sec MV P1/2t max torsten: 68.9 cm/sec Ao V2 max: 212.0 cm/sec MV max P.2 mmHg MV P1/2t: 62.7 msec Ao max P.0 mmHg MV V2 mean: 40.9 cm/sec Ao V2 mean: 146.7 cm/sec MV mean P.79 mmHg MV dec slope: 321.8 cm/sec2 Ao mean P.9 mmHg MV V2 VTI: 23.6 cm MVA(P1/2t): 3.5 cm2 Ao V2 VTI: 46.6 cm AV (velocity ratio): 0.42 MVA(VTI): 3.2 cm2 ROSA(I,D): 1.6 cm2 ROSA(V,D): 1.4 cm2 AI max torsten: 374.0 cm/sec LV V1 max: 77.3 cm/sec MR max torsten: 540.7 cm/sec AI max P.1 mmHg LV V1 max P.4 mmHg MR max P.0 mmHg LV V1 mean P.3 mmHg AI dec slope: 149.7 cm/sec2 LV V1 mean: 53.3 cm/sec AI P1/2t: 731.9 msec LV V1 VTI: 19.5 cm SV(LVOT): 75.9 ml TV V2 max: 77.0 cm/sec PA V2 max: 180.7 cm/sec TV max P.4 mmHg PA V2 mean: 113.3 cm/sec TV V2 mean: 37.4 cm/sec TV mean P.66 mmHg TR max torsten: 273.3 cm/sec TR max P.9 mmHg ECHO/Echo Complete Interpretation Summary Mild concentric left ventricular hypertrophy. The left ventricular ejection fraction is 65 %. Mild (1+) mitral valve insufficiency. Mild (1+) tricuspid valve insufficiency. Mild aortic stenosis. Mild (1+) aortic valve insufficiency. Mildly dilated aortic root. Ordering Physician: Juan Wolf Referring Physician: Juan Wolf Performed By: Wei Delatorre RCS
== END | disposition home or self-care (01) ==
LOC: CVS 07:49
PROVIDERS: PCP Family Medicine; Referring Provider Family Medicine; Visit Provider Family Medicine
DX: R01.1 Cardiac murmur, unspecified (principal)
CPT/HCPCS: 93306

== ENCOUNTER 2022-09-19 05:29 | Day surgery (SDC) | payer BC, SELFPAY ==
[2022-09-19] VITALS (11 sets, daily range): BP systolic 113–152; BP diastolic 78–105; PULSE 59–65; RESP 16–17; TEMP 36–37.2; O2SAT 60–97; BMI 36.6
[2022-09-19] MEDS: Lactated Ringers 1,000 ML 15 ML IV (05:40)
--- NOTE | 2022-09-19 05:56 | PCM.HP.STD ---
[facility] - General General Date of Admission: 11/18/19 HPI Narrative LINDSAY WEIR, is a 62 M who presents for surveillance colonoscopy. September 2017 he had a sessile polyp that I removed from the cecum for him. He denies abdominal pain. No bright red blood per rectum or melena. He states that recently had an echocardiogram performed because of a detected heart murmur. The echocardiogram apparently not changed over the past 10 years. He otherwise enjoys good health. [facility] Medical History (Updated 09/19/22 @ 06:[address] Georges Arroyo MD) Alcohol use Back pain Cardiology follow-up encounter Change in bowel habit Chest discomfort Cyst of neck Diabetes Dietary restriction Diverticulosis Encounter for screening for COVID-19 High blood cholesterol History of echocardiogram History of rheumatic fever History of stress test Hx of adenomatous polyp of colon Leaky heart valve Non-smoker Wears contact lenses Wears hearing aid Home Medications atorvastatin 20 mg tablet 20 mg PO DAILY 10/05/20 [History Last Taken Unknown] metformin 500 mg tablet,extended release 24 hr 500 mg PO BID 10/05/20 [History Last Taken 09/15/22] semaglutide 7 mg tablet (Rybelsus) 7 mg PO DAILY 08/01/22 [History Last Taken 09/15/22] cyanocobalamin (vitamin B-12) 100 mcg tablet (Vitamin B-12) 100 mcg PO DAILY 08/14/22 [History Last Taken Unknown] multivitamin 1 tab PO DAILY 08/14/22 [History Last Taken Unknown] Allergy/AdvReac Type Severity Reaction Status Date / Time cephalexin [From Keflex] Allergy Mild Rash Verified 09/18/22 09:16 Penicillins Allergy Anaphylaxis Verified 09/18/22 09:16 Family History Mother Heart disease Hypertension High blood cholesterol Autoimmune disease Father Kidney disease Surgical History H/O hernia repair History of colonoscopy (09/15/17) Hx of endoscopic sinus surgery Hx of nasal septoplasty Social History Smoking Status: Never smoker second hand exposure: No alcohol intake: current alcohol intake frequency: holidays/special occasions only substance use type: does not use caffeine: Yes ROS Constitutional Constitutional: Reports systems reviewed and no addt'l complaints, except as documented Cardiovascular Cardiovascular: Denies chest pain Respiratory/Chest Respiratory/Chest: Denies shortness of breath at rest Gastrointestinal Gastrointestinal: Denies abdominal pain, change in bowel habits, hematochezia or melena Physical Exam Const alert, oriented x3 and no apparent distress General Appearance: cooperative and comfortable Eyes General Eye: normal appearance of both eyes Neck General: normal visual inspection Chest inspection of chest normal Resp Effort and Inspection: able to speak in complete sentences and symmetric chest movement Auscultation: clear to auscultation bilaterally Cardio regular rate and regular rhythm GI soft to palpation, non-tender and non-distended Extremity no calf tenderness Neuro oriented x3 Psych thought process normal Assessment & Plan Assessment/Plan (1) Personal history of colonic polyps: PLAN: The patient presents via open access today for surveillance colonoscopy because of a personal history of colon polyps. Propose for him a colonoscopy with possible biopsy or polypectomy as indicated. He is aware of the technique, benefit, risk, alternatives. He has had an opportunity to ask and have questions answered. We will proceed as noted. Georges Arroyo M.D., F.A.C.S.
[2022-09-19 06:26] LABS: Bedside Glucose 127 mg/dL (74-106)
--- NOTE | 2022-09-19 06:30 | COLBX_PTH ---
PATIENT: LINDSAY WEIR LOC: EN U#:[id number] AGE/SX: 62/M ROOM: RE09/19/[address]: Dr. Georges Arroyo MD : 1960 BED: DIS: 09/19/2022 SPEC #: [id number] RECD: 09/19/22 08:05 STATUS: SRINATH SANTORO #: [id number] NEDRA: 09/19/22 06:[address]: Georges Arroyo DEPT: SURGICAL PATHOLOGY RECD BY: Adrienne Hanks ENTERED: 09/19/22 08:58 SP TYPE: COLON BX OTHR DR: Dr. Sohail Wolf MD Tissues: Cecum, NOS Procedures: Surgery Specimen Level IV HEADER OPERATION: Colonoscopy - open access (MOD) with biopsy PRE-OP DIAGNOSIS: History of colonic polyps TISSUE SUBMITTED: Cecum polyp biopsy MICROSCOPIC DIAGNOSIS Cecal polyp, biopsy: Polypoid fragment of benign colonic mucosa. See comment. AM:freddy 09/20/2022 COMMENT Neither hyperplastic nor adenomatous change is identified. Clinical correlation is suggested. MICROSCOPIC DESCRIPTION Slides are reviewed. GROSS DESCRIPTION Received in fixative is one container labeled with the patient's name and designated cecum polyp biopsy. The specimen consists of one irregular fragment of light rodriguez soft tissue that measures 0.5 x 0.3 x 0.1 cm. The specimen is totally submitted in one cassette. / SJ:freddy 09/19/2022 TC:5 CPT: 77329
[2022-09-19] MEDS: Midazolam 2 MG/2 ML Syringe (06:35)
--- NOTE | 2022-09-19 07:02 | OP.CCLET_ITS ---
09/19/2022 Juan Wolf [address] [place] [address] Re : Colonoscopy procedure for Fabiano Himanshu Dear Dr. Wolf This procedure was performed on Monday, September 19, 2022. My impressions and recommendations are as follows: Impressions : - Non-thrombosed internal hemorrhoids and internal hemorrhoids that prolapse with straining, but spontaneously regress to the resting position (Grade II) found on digital rectal exam. - One 4 mm polyp in the cecum, removed with a cold biopsy forceps. Resected and retrieved. - Diverticulosis in the sigmoid colon. Recommendations : - Discharge patient to home. - Resume previous diet. - Continue present medications. - Repeat colonoscopy in 5 years for surveillance based on pathology results. - Telephone my office for pathology results in 1 week. Cecal biopsy probably is just artifact from suction from the scope. We will await results and then instruct the patient on recommendations for follow-up. My findings are described in the full procedure note, which is enclosed. If I can be of further assistance, please feel free to contact me at Doctor phone number(s): Work: . Sincerely, Georges Arroyo MD 09/19/2022 7:01:46 AM This report has been signed electronically.
--- NOTE | 2022-09-19 07:02 | OP.COLON_ITS ---
Patient Name: Fabiano Downs Procedure Date: 09/19/2022 6:26 AM Date of : 1960 Age: 62 Procedure: Colonoscopy Indications: High risk colon cancer surveillance: Personal history of colonic polyps Providers: Georges Arroyo MD Referring MD: Juan Wolf Medicines: Midazolam 4.5 mg IV, Meperidine 100 mg IV Patient Profile: Last Colonoscopy: September 2017. Complications: No immediate complications. Procedure: Pre-Anesthesia Assessment: - Prior to the procedure, a History and Physical was performed, and patient medications and allergies were reviewed. The patient's tolerance of previous anesthesia was also reviewed. The risks and benefits of the procedure and the sedation options and risks were discussed with the patient. All questions were answered, and informed consent was obtained. Prior Anticoagulants: The patient has taken no previous anticoagulant or antiplatelet agents. ASA Grade Assessment: II - A patient with mild systemic disease. After reviewing the risks and benefits, the patient was deemed in satisfactory condition to undergo the procedure. After I obtained informed consent, the scope was passed under direct vision. Throughout the procedure, the patient's blood pressure, pulse, and oxygen saturations were monitored continuously. The adult colonoscope was introduced through the anus and advanced to the cecum, identified by appendiceal orifice and ileocecal valve. The colonoscopy was somewhat difficult due to a tortuous colon. The patient tolerated the procedure well. The quality of the bowel preparation was good. The ileocecal valve and the appendiceal orifice were photographed. Moderate Sedation: Moderate (conscious) sedation was personally administered by the endoscopist. The following parameters were monitored: oxygen saturation, heart rate, blood pressure, and response to care. Total physician intraservice time was 15 minutes. Scope In: 6:31:18 AM Scope Withdrawal Time 0 hours 9 minutes 11 seconds Scope Out: 6:50:51 AM Total Procedure Duration Time 0 hours 19 minutes 33 seconds Findings: The digital rectal exam findings include non-thrombosed internal hemorrhoids and internal hemorrhoids that prolapse with straining, but spontaneously regress to the resting position (Grade II). Pertinent negatives include normal prostate (size, shape, and consistency). A 4 mm polyp was found in the cecum. The polyp was sessile. The polyp was removed with a cold biopsy forceps. Resection and retrieval were complete. Scattered diverticula were found in the sigmoid colon. Impression: - Non-thrombosed internal hemorrhoids and internal hemorrhoids that prolapse with straining, but spontaneously regress to the resting position (Grade II) found on digital rectal exam. - One 4 mm polyp in the cecum, removed with a cold biopsy forceps. Resected and retrieved. - Diverticulosis in the sigmoid colon. Recommendation: - Discharge patient to home. - Resume previous diet. - Continue present medications. - Repeat colonoscopy in 5 years for surveillance based on pathology results. - Telephone my office for pathology results in 1 week. Cecal biopsy probably is just artifact from suction from the scope. We will await results and then instruct the patient on recommendations for follow-up. Procedure Code(s): --- Professional --- 48864, Colonoscopy, flexible; with biopsy, single or multiple 89570, 59, Moderate sedation services provided by the same physician or other qualified health medication care manager performing the diagnostic or therapeutic service that the sedation supports, requiring the presence of an independent trained observer to assist in the monitoring of the patient's level of consciousness and physiological status; initial 15 minutes of intraservice time, patient age 5 years or older Diagnosis Code(s): --- Professional --- Z86.010, Personal history of colonic polyps K64.1, Second degree hemorrhoids D12.0, Benign neoplasm of cecum K57.30, Diverticulosis of large intestine without perforation or abscess without bleeding CPT copyright 2017 [employer]. All rights reserved. The codes documented in this report are preliminary and upon chimney sweeper review may be revised to meet current compliance requirements. Georges Arroyo MD 09/19/2022 7:01:46 AM This report has been signed electronically. Number of Addenda: 0 Note Initiated On: 09/19/2022 6:26 AM
== END 2022-09-19 07:42 | disposition home or self-care (01) ==
LOC: EN 05:29 → AC 05:30
PROVIDERS: PCP Family Medicine; Referring Provider Family Medicine; Visit Provider Surgery
PROC: 0DJD8ZZ Inspection of Lower Intestinal Tract, Via Natural or Artificial Opening Endoscopic (ICD-10-PCS; CPT 45378; principal; 2022-09-19 06:25)
DX: Z12.11 Encounter for screening for malignant neoplasm of colon (principal); E11.9 Type 2 diabetes mellitus without complications; K64.8 Other hemorrhoids; K57.30 Diverticulosis of large intestine without perforation or abscess without bleeding; R01.1 Cardiac murmur, unspecified; Z79.2 Long term (current) use of antibiotics; E78.00 Pure hypercholesterolemia, unspecified; Z86.010 Personal history of colon polyps; Z82.49 Family history of ischemic heart disease and other diseases of the circulatory system; D12.0 Benign neoplasm of cecum; K64.1 Second degree hemorrhoids
CPT/HCPCS: 45380; 82962; 88305; 99152; 99153; J7120

== ENCOUNTER → 2022-12-08 | Outpatient (CLI) | payer BC, SELFPAY ==
--- NOTE | 2022-12-08 17:57 | STRESSREP_ITS ---
Stress Test Report Exercise myocardial perfusion stress test. 62-year-old man with a history of chest pain Stress protocol: Resting EKG demonstrates normal sinus rhythm with a rate of 58 bpm resting blood pressure is 144/78 mmHg. The patient exercised according to the regular Fabian protocol for a total duration of 7 minutes and 11 seconds attaining a maximum heart rate of 130 bpm which was 82% of maximum predicted heart rate; the maximum workload was 10.1 metabolic equivalents. At rest there were no ST or T wave changes noted to suggest ischemia and at peak exercise upsloping ST changes only were noted which did not meet the criteria for ischemia. No clinical angina was noted the test was terminated due to the target heart rate being achieved/fatig ue. The peak blood pressure was 162/80 mmHg. Rate-pressure product was 19,400. Myocardial perfusion protocol. 14.9 mCi of technetium 99m sestamibi was injected at rest. The patient exercised according to regular Fabian protocol for total duration of 7 minutes and 11 seconds and at peak exercise 44.7 mCi of technetium 99m sestamibi was injected stress images were obtained stress and rest images were reconstructed in comparing the short axis vertical long and horizontal long axis. Gated images were also obtained. Perfusion SPECT analysis: Review of the stress images demonstrate normal uptake of tracer noted in all areas of the myocardium. The resting images similarly demonstrate normal uptake of tracer noted in all areas of the myocardium. No areas of reversibility are noted to suggest ischemia no previous infarct was noted. Gated SPECT analysis: The gated ejection fraction is 48%. Conclusion: Normal exercise myocardial perfusion stress test at a high workload Low normal ejection fraction.
== END | disposition home or self-care (01) ==
LOC: CVS 05:51
PROVIDERS: PCP Family Medicine; Referring Provider Family Medicine; Visit Provider Family Medicine
DX: R07.9 Chest pain, unspecified (principal)
CPT/HCPCS: 78452; 93017; A9500; A4216

== ENCOUNTER → 2023-01-01 | Outpatient (CLI) | payer BC, SELFPAY | END | disposition home or self-care (01) | LOC: SL 19:58 | PROVIDERS: PCP Family Medicine; Visit Provider Family Medicine | DX: G47.10 Hypersomnia, unspecified (principal) | CPT/HCPCS: 95810 ==

== ENCOUNTER → 2023-02-01 | Outpatient (CLI) | payer BC, SELFPAY ==
[2023-02-01 10:38] LABS: Microalbumin,Random Urine 7.5 mg/L (NO RANGE EST.)
[2023-02-01 10:47] LABS: ALB/GLOB Ratio 1.1 RATIO (0.9-2.4); AST(SGOT) 35 U/L (15-37); Alanine Aminotransfer ALT/SGPT 69 U/L (16-61); Albumin, Serum 3.6 g/dL (3.2-5.0); Alkaline Phosphatase 55 U/L (45-117); Anion Gap 8 (5-15); BUN 15 mg/dL (7-18); BUN/Creat Ratio 12.4 RATIO (10-20); Calcium,Total 8.3 mg/dL (8.5-10.1); Chloride 105 mmol/L (98-107); Cholesterol 161 mg/dL (200); Creatinine, Serum 1.21 mg/dL (0.70-1.30); EST Glomerular Filtration Rate 64 mL/min (>60); Est Glom Filt Rate - Afr Amer 78 mL/min (>60); Globulin 3.2 g/dL (2.2-4.2); Glucose 145 mg/dL (74-106); High Density Lipoprotein 38 mg/dL; Protein, Total 6.8 g/dL (6.4-8.2); Sodium Level 139 mmol/L (136-145); Triglycerides 360 mg/dL; Very Low Density Lipoprotein 72 mg/dL (5-40)
[2023-02-01 10:54] LABS: Color, Urine Yellow (Yellow); Glucose, Dipstick 100 mg/dl (Normal); Ketone-Dipstick Negative (Negative); Leukocyte Esterase-Dipstick Negative /ul (Negative); Nitrite-Dipstick Negative (Negative); Occult Blood-Urine Negative /ul (Negative); Protein-Dipstick Negative (Negative); Specific Gravity, Urine 1.015 (1.002-1.030); Urine Bilirubin Dipstick Negative (Negative); Urine Clarity Clear (Clear); Urine Urobilinogen Normal (Normal); Urine pH 6.5 (5.0 - 8.0)
== END | disposition home or self-care (01) ==
LOC: MTLAB 07:02
PROVIDERS: PCP Family Medicine; Referring Provider Family Medicine; Visit Provider Family Medicine
DX: Z00.00 Encounter for general adult medical examination without abnormal findings (principal); E11.9 Type 2 diabetes mellitus without complications
CPT/HCPCS: 36415; 80053; 80061; 81002; 82043; 84403

== ENCOUNTER → 2023-02-08 | Outpatient (CLI) | payer BC, SELFPAY ==
--- NOTE | 2023-02-09 13:41 | PFTCOMP ---
COMPLETE PULMONARY FUNCTION TEST INTERPRETATION Brief HPI: Patient is a 62-year-old male, currently under the care of Dr. Wolf, who presents to [facility] for complete pulmonary function tests secondary to diagnosis of dyspnea. Respiratory therapist reports good effort and reproducible results. Interpretation: Forced expiration spirometry shows no large airways obstructive ventilatory defect with an FEV1 of 118% predicted. There is no significant bronchodilator response by strict ATS criteria. Spirograms are of good quality and plateau normally. The respiratory flow volume loop shows a normal pattern. Lung volumes by body plethysmography show a normal total lung capacity at 6.56 L, 92% predicted. All other lung volumes are within normal limits. Diffusion capacity by carbon monoxide is normal at 97% predicted. The airway resistance is normal. No previous pulmonary function tests were available for review. Impression: These pulmonary function tests are within normal limits
== END | disposition home or self-care (01) ==
LOC: PSN 06:52
PROVIDERS: PCP Family Medicine; Referring Provider Family Medicine; Visit Provider Family Medicine
DX: R06.00 Dyspnea, unspecified (principal)
CPT/HCPCS: 94060; 94726; 94729

== ENCOUNTER → 2023-03-14 | Outpatient (CLI) | payer BC, SELFPAY ==
--- NOTE | 2023-03-14 15:05 | RAD_ITS ---
INDICATION: chest pain EXAMINATION/TECHNIQUE: X-RAY - XR Chest 2 Views COMPARISON: None. FINDINGS: LINES/DEVICES: None. LUNGS: No consolidation, edema or effusion. No pneumothorax. MEDIASTINUM AND CARDIOVASCULAR STRUCTURES: Cardiac silhouette not enlarged. Central airways and mediastinal contour are unremarkable. BONES AND SOFT TISSUES: Unremarkable. RAD/Chest PA and Lateral IMPRESSION: No radiographic evidence of acute cardiopulmonary disease. Electronically Signed: Aurelio Blum MD at 0:42 EST ,
[2023-03-14 16:34] LABS: Absolute Lymphocyte Count 1.73 X10^3/uL (0.83-4.51); Absolute Neutrophil Count 4.7 X10^3/uL (2.0-7.7); Basophil# 0.06 X10^3/uL; Basophil% 0.8 % (0-1); Eosinophil# 0.28 X10^3/uL; Eosinophils% 3.7 % (0-5); Hematocrit 44.5 % (40-54); Hemoglobin 15.2 g/dL (13.0-16.5); Lymphocyte # 1.73 X10^3/ul (0.83-4.51); Lymphocyte % 23.1 % (19-41); Mean Corp Hgb Conc 34.2 g/dL (32-36); Mean Corpuscular Hgb 29.8 pg (27.0-32.0); Mean Corpuscular Volume 87.3 fL (80-94); Mean Platelet Vol. 10.3 fl (6.2-12.0); Monocyte# 0.74 X10^3/uL; Monocyte% 9.9 % (0-10); NRBC Flagged by Analyzer 0 % (0-5); Neutrophil # 4.67 X10^3/uL (2.7-7.7); Neutrophil % 62.2 % (47-70); Platelet Count 180 K/mm3 (150-450); RBC Distribution Width CV 12.8 % (11.6-14.6); RBC Distribution Width SD 40.9 fl (35.1-43.9); White Blood Count 7.5 K/mm3 (4.4-11.0)
[2023-03-14 17:01] LABS: Anion Gap 8 (5-15); BUN 14 mg/dL (7-18); BUN/Creat Ratio 10.7 RATIO (10-20); Calcium,Total 9.3 mg/dL (8.5-10.1); Chloride 106 mmol/L (98-107); Creatinine, Serum 1.31 mg/dL (0.70-1.30); EST Glomerular Filtration Rate 59 mL/min (>60); Est Glom Filt Rate - Afr Amer 71 mL/min (>60); Glucose 210 mg/dL (74-106); Potassium 4.1 mmol/L (3.5-5.1); Sodium Level 138 mmol/L (136-145)
== END | disposition home or self-care (01) ==
LOC: RAD 15:04
PROVIDERS: PCP Family Medicine; Referring Provider Internal Medicine Cardiovascular Disease; Visit Provider Internal Medicine Cardiovascular Disease
DX: R07.9 Chest pain, unspecified (principal); I35.0 Nonrheumatic aortic (valve) stenosis
CPT/HCPCS: 36415; 71046; 80048; 85025

== ENCOUNTER 2023-03-22 06:52 | Day surgery (SDC) | payer BC, SELFPAY ==
[2023-03-21 10:09] VITALS: BMI 38.4
--- NOTE | 2023-03-22 08:56 | CL.D_ITS ---
Patient Name: LINDSAY WEIR Study Date: 03/22/2023 Performing: Shakeel Ervin MD Ht: 70 inches 177.8 cm : 1960 Wt: 267.99 lbs 121.56 kg Age: 62 Gender: male BSA: 2.36 PROCEDURE(S) PERFORMED DC01-(46972)LHC/COR/LV CLINICAL PROFILE AND INDICATIONS Indications: Suspected CAD Heart Failure: None Stress/Imaging Date: 12/23/22Stress Test with SPECT MPI: Negative CAD Presentations: Stable angina. CONCLUSIONS Patient appears to have triple-vessel disease which is moderate in severity and preserved ejection fraction. I would recommend maximization of medical therapy and to perform a stress test on medical therapy before deciding on either targeted revascularization or surgery. RECOMMENDATIONS Medical therapy DESCRIPTION OF PROCEDURE The patient arrived to the procedure lab. The risks and benefits of the procedure as well as a full description of our services here and current unavailability of surgical backup were fully explained to the patient and/or their significant other prior to the catheterization. The Timeout was completed, verifying the correct patient and procedure. The patient's procedural site was prepped and draped in the usual fashion. Local anesthetic was given subcutaneously to right radial region with Lidocaine 2%. Using a modified Seldinger technique, arterial access was obtained via the right radial artery, a 6Fr sheath was inserted. Left Coronary Artery selective angiography was performed in multiple views using a 5 Fr. 4.0 Shawnee catheter. Right Coronary Artery selective angiography was then performed in multiple views using a 5 Fr. JR 5 catheter. Left Ventriculography was performed in RILEY projection using a 5 Fr. Pigtail catheter. LV to AO pullback pressures were then recorded.The arterial sheath was pulled and a TR Band was applied for hemostasis w/ 9ml air CORONARY ANGIOGRAPHY DOMINANCE: Right Dominant LEFT HEART ASSESSMENT Left Ventricular Ejection Fraction: by LV Gram 55 % Normal LV wall motion Normal Left Ventricular systolic function LEFT MAIN: Angiographically normal LEFT ANTERIOR DESCENDING ARTERY: Medium size vessel is noted with mild calcification and moderate stenosis noted in the midsegment of about 60 to 70% CIRCUMFLEX ARTERY: Codominant vessel with a first prominent obtuse marginal branch with no significant stenosis, the mid circumflex artery is noted to have a long area of moderate stenosis of approximately 70% and then distal obtuse marginal branch and posterolateral branches with mild to moderate diffuse disease and collateralization of the distal right coronary artery RIGHT CORONARY ARTERY: Proximal right coronary artery is subtotally occluded with faint filling of the distal vessel. VALVE FINDINGS: Aortic Valve Calcification - mild Aortic Valve Stenosis - mild COMPLICATIONS No Complications PROCEDURE MEDICATIONS Versed 1 mg IV Fentanyl 50 mcg IV Versed 1 mg IV Oxygen: 2 L/min via nasal cannula Heparin given IA 03/22/2023 08:14:12 Verapamil 2.5mg, 2000 units of Heparin given IA 03/22/2023 08:14:12 IV Bolus: .9 NaCl 400 ml total 03/22/2023 08:44:45 SUMMARY OF HEMODYNAMIC DATA Time AIR REST ECG 07:13:26 Art 139/75 (99) 08:17:58 AO 144/90 (113) SA 08:29:41 LV 148/8, 22 08:38:58 LV 155/10, 22 08:39:07 LV 155/15, 0 08:39:51 LV 153/10, 22 08:39:59 LVp 151/9, 22 08:40:05 AOp 157/85 (114) 08:40:12 Signed By Shakeel Ervin MD On 03/22/2023 08:55:23 Shakeel Ervin MD
== END 2023-03-22 12:15 | disposition home or self-care (01) ==
PROVIDERS: PCP Family Medicine; Referring Provider Internal Medicine Cardiovascular Disease; Visit Provider Internal Medicine Cardiovascular Disease
DX: I35.0 Nonrheumatic aortic (valve) stenosis (principal); R07.9 Chest pain, unspecified; Z79.82 Long term (current) use of aspirin; E78.00 Pure hypercholesterolemia, unspecified
CPT/HCPCS: 93458; 99152; 99153; J7040; Q9967; C1769; C1894

== ENCOUNTER → 2023-08-14 | Outpatient (CLI) | payer BC, SELFPAY ==
[2023-08-14 10:02] LABS: Absolute Lymphocyte Count 1.52 X10^3/uL (0.83-4.51); Absolute Neutrophil Count 3.6 X10^3/uL (2.0-7.7); Basophil# 0.05 X10^3/uL; Basophil% 0.8 % (0-1); Eosinophil# 0.31 X10^3/uL; Eosinophils% 5.1 % (0-5); Hematocrit 45.5 % (40-54); Lymphocyte # 1.52 X10^3/ul (0.83-4.51); Lymphocyte % 25.2 % (19-41); Mean Corpuscular Hgb 30.5 pg (27.0-32.0); Mean Corpuscular Volume 92.5 fL (80-94); Mean Platelet Vol. 10.9 fl (6.2-12.0); Monocyte# 0.56 X10^3/uL; Monocyte% 9.3 % (0-10); NRBC Flagged by Analyzer 0 % (0-5); Neutrophil # 3.58 X10^3/uL (2.7-7.7); Neutrophil % 59.3 % (47-70); Platelet Count 164 K/mm3 (150-450); RBC Distribution Width CV 12.6 % (11.6-14.6); RBC Distribution Width SD 42.8 fl (35.1-43.9); Red Blood Count 4.92 M/mm3 (4.6-6.2)
[2023-08-14 10:50] LABS: ALB/GLOB Ratio 1.2 RATIO (0.9-2.4); AST(SGOT) 20 U/L (15-37); Alanine Aminotransfer ALT/SGPT 33 U/L (16-61); Albumin, Serum 3.8 g/dL (3.2-5.0); Alkaline Phosphatase 50 U/L (45-117); Anion Gap 6 (5-15); BUN 13 mg/dL (7-18); BUN/Creat Ratio 9.7 RATIO (10-20); Chloride 109 mmol/L (98-107); Cholesterol 159 mg/dL (200); Creatinine, Serum 1.34 mg/dL (0.70-1.30); EST Glomerular Filtration Rate 57 mL/min (>60); Est Glom Filt Rate - Afr Amer 69 mL/min (>60); Globulin 3.3 g/dL (2.2-4.2); Glucose 113 mg/dL (74-106); High Density Lipoprotein 44 mg/dL; PSA,Total - Annual Screen 0.65 ng/mL (0.00-4.00); Potassium 4.1 mmol/L (3.5-5.1); Protein, Total 7.1 g/dL (6.4-8.2); Sodium Level 139 mmol/L (136-145); Triglycerides 162 mg/dL; Very Low Density Lipoprotein 32 mg/dL (5-40)
[2023-08-14 11:08] LABS: Vitamin B12 1119 pg/mL (211-911)
== END | disposition home or self-care (01) ==
LOC: MTLAB 07:00
PROVIDERS: PCP Family Medicine; Referring Provider Family Medicine; Visit Provider Family Medicine
DX: E11.59 Type 2 diabetes mellitus with other circulatory complications (principal); E53.8 Deficiency of other specified B group vitamins; E78.5 Hyperlipidemia, unspecified; E55.9 Vitamin D deficiency, unspecified; Z12.5 Encounter for screening for malignant neoplasm of prostate
CPT/HCPCS: 36415; 80053; 80061; 82306; 82607; 84153; 85025; G0103

== ENCOUNTER → 2023-09-17 | Outpatient (CLI) | payer BC, SELFPAY ==
--- NOTE | 2023-09-18 11:58 | STRESSREP ---
Stress Test Report Pharmacologic myocardial perfusion stress test. 63-year-old male with a history of chest heaviness Resting EKG demonstrates sinus bradycardia, with a rate of 53 bpm. Resting blood pressure is 120/78 mmHg. 0.4 mg of regadenoson was infused per usual protocol followed by rapid intravenous saline flush injection. Continuous EKG monitoring was performed. The maximum heart rate was 65 bpm which was 41% of max impacted heart rate the maximum workload was 1 metabolic equivalent. At rest there were no ST or T wave changes noted to suggest ischemia and at peak infusion nonspecific ST changes were noted which did not meet the criteria for ischemia. No clinical angina is noted. The final blood pressure was 118/68 mmHg. Myocardial perfusion protocol. 14.1 mCi of technetium 99m sestamibi was injected at rest. 0.4 mg of regadenoson was infused per usual protocol. At peak infusion 44.3 mCi of technetium 99m sestamibi was injected stress images were obtained stress and rest images were reconstructed and compared in the short axis vertical long and horizontal long axis. Gated images were also obtained. Perfusion SPECT analysis: Review of the stress images demonstrate normal uptake of tracer noted in all areas of the myocardium. The resting images similar demonstrated normal uptake of tracer noted in all areas of the myocardium. No areas of reversibility are noted to suggest ischemia and no previous infarct is noted. Gated SPECT analysis: The gated ejection fraction is 56%. Conclusion: Normal pharmacologic myocardial perfusion stress test. Preserved ejection fraction.
== END | disposition home or self-care (01) ==
LOC: CVS 06:21
PROVIDERS: PCP Family Medicine; Referring Provider Internal Medicine Cardiovascular Disease; Visit Provider Internal Medicine Cardiovascular Disease
DX: I25.10 Atherosclerotic heart disease of native coronary artery without angina pectoris (principal); R07.9 Chest pain, unspecified; R53.83 Other fatigue; I35.0 Nonrheumatic aortic (valve) stenosis; R06.00 Dyspnea, unspecified
CPT/HCPCS: 78452; 93017; A9500; A4216; J2785

== ENCOUNTER → 2023-09-20 | Outpatient (CLI) | payer BC, SELFPAY ==
--- NOTE | 2023-09-20 10:34 | ECHOD_ITS ---
Reason For Study: CAD, Procedure This was a 2D Doppler, Color Flow transthoracic echocardiogram. Exam performed in department. Left Ventricle Normal left ventricle. Left ventricular systolic function is normal. The left ventricular ejection fraction is 65 %. Stage 1 diastolic dysfunction. No regional wall motion abnormalities noted. Right Ventricle Normal RV size. Normal systolic function. Atria Normal left atrium. Normal right atrium. Bubble contrast study negative for right to left interatrial shunt. Mitral Valve Normal mitral valve. Mild (1+) eccentric mitral valve insufficiency. Tricuspid Valve Normal tricuspid valve. Mild (1+) tricuspid valve insufficiency. Pulmonary artery systolic pressure is 26 mmHg. Aortic Valve Trisinus/trileaflet aortic valve. Mild focal aortic valve calcification. Peak aortic valve gradient 32 mmHg. Mean aortic valve gradient 17 mmHg. Mild to moderate aortic stenosis. Mild (1+) aortic valve insufficiency. Pulmonic Valve Normal pulmonic valve. Great Vessels Normal aortic root. The pulmonary artery is normal size. Normal inferior vena cava. Pericardium/Pleural No pericardial effusion. MMode/2D Measurements & Calculations LVIDd: 4.7 cm IVSd: 1.2 cm LVOT diam: 2.2 cm LVIDs: 2.8 cm LVPWd: 1.1 cm LVOT area: 3.9 cm2 RVDd: 3.4 cm FS: 39.8 % Ao root diam: 3.6 cm LAV(MOD-bp): 55.8 ml LVAd ap4: 37.8 cm2 LAV(MOD-bp) Indexed: 23.6 ml/m2 LVLd ap4: 9.3 cm LAV(MOD-sp2): 60.9 ml EDV(MOD-sp4): 122.5 ml LAV(MOD-sp4): 50.7 ml EDV(sp4-el): 129.9 ml LVAs ap4: 20.8 cm2 LVLs ap4: 8.0 cm ESV(MOD-sp4): 45.2 ml ESV(sp4-el): 46.0 ml EF(MOD-sp4): 63.1 % EF(sp4-el): 64.6 % LVAd ap2: 38.1 cm2 SV(MOD-sp4): 77.3 ml SV(MOD-sp2): 85.8 ml LVLd ap2: 9.4 cm EDV(MOD-sp2): 133.5 ml EDV(sp2-el): 130.6 ml LVAs ap2: 21.3 cm2 LVLs ap2: 8.2 cm ESV(MOD-sp2): 47.6 ml ESV(sp2-el): 46.7 ml EF(MOD-sp2): 64.3 % SV(sp4-el): 83.9 ml LA dimension(2D): 4.1 cm LA A4 area: 18.6 cm2 RA A4 area: 14.0 cm2 TAPSE: 1.8 cm Time Measurements MV dec time: 0.21 sec Doppler Measurements & Calculations MV E max torsten: 80.1 cm/sec Lat Peak E' Torsten: 10.2 cm/sec Med Peak E' Torsten: 7.6 cm/sec MV A max torsten: 81.9 cm/sec E/E' lat: 7.8 E/E' med: 10.5 MV E/A: 0.98 Ao V2 max: 283.3 cm/sec AI max torsten: 310.2 cm/sec MV dec slope: 373.6 cm/sec2 Ao max P.2 mmHg AI max P.5 mmHg Ao V2 mean: 195.5 cm/sec Ao mean P.1 mmHg AI dec slope: 137.5 cm/sec2 Ao V2 VTI: 63.6 cm AI P1/2t: 660.6 msec AV (velocity ratio): 0.40 ROSA(I,D): 1.6 cm2 ROSA(V,D): 1.5 cm2 LV V1 max: 110.6 cm/sec SV(LVOT): 101.2 ml PA V2 max: 106.9 cm/sec LV V1 max P.9 mmHg PA max PG (full): 0.90 mmHg LV V1 mean P.5 mmHg LV V1 mean: 74.7 cm/sec LV V1 VTI: 25.7 cm TR max torsten: 241.9 cm/sec TR max P.4 mmHg ECHO/Echo Complete Interpretation Summary Normal left ventricle. Left ventricular systolic function is normal. The left ventricular ejection fraction is 65 %. Stage 1 diastolic dysfunction. Mild to moderate aortic stenosis. Mild (1+) aortic valve insufficiency. Bubble contrast study negative for right to left interatrial shunt. Ordering Physician: Shakeel Ervin Referring Physician: Sohail Wolf MD Performed By: Natividad Doll RDCS and Student
== END | disposition home or self-care (01) ==
LOC: CVS 10:33
PROVIDERS: PCP Family Medicine; Referring Provider Internal Medicine Cardiovascular Disease; Visit Provider Internal Medicine Cardiovascular Disease
DX: I25.10 Atherosclerotic heart disease of native coronary artery without angina pectoris (principal)
CPT/HCPCS: 93306

== ENCOUNTER → 2024-02-12 | Outpatient (CLI) | payer BC, SELFPAY ==
[2024-02-12 10:29] LABS: Vitamin B12 966 pg/mL (211-911)
[2024-02-12 11:08] LABS: ALB/GLOB Ratio 1.2 RATIO (0.9-2.4); AST(SGOT) 18 U/L (15-37); Alanine Aminotransfer ALT/SGPT 28 U/L (16-61); Albumin, Serum 3.8 g/dL (3.2-5.0); Alkaline Phosphatase 57 U/L (45-117); Anion Gap 8 (5-15); BUN 18 mg/dL (7-18); BUN/Creat Ratio 12.4 RATIO (10-20); Calcium,Total 9.2 mg/dL (8.5-10.1); Chloride 110 mmol/L (98-107); Cholesterol 199 mg/dL (200); Creatinine, Serum 1.45 mg/dL (0.70-1.30); EST Glomerular Filtration Rate 52 mL/min (>60); Est Glom Filt Rate - Afr Amer 63 mL/min (>60); Globulin 3.2 g/dL (2.2-4.2); Glucose 124 mg/dL (74-106); High Density Lipoprotein 44 mg/dL; Sodium Level 140 mmol/L (136-145); Triglycerides 262 mg/dL; Very Low Density Lipoprotein 52 mg/dL (5-40)
== END | disposition home or self-care (01) ==
LOC: MTLAB 07:09
PROVIDERS: PCP Family Medicine; Referring Provider Family Medicine; Visit Provider Family Medicine
DX: E53.8 Deficiency of other specified B group vitamins (principal); E11.69 Type 2 diabetes mellitus with other specified complication
CPT/HCPCS: 36415; 80053; 80061; 82607

== ENCOUNTER → 2024-07-16 | Outpatient (CLI) | payer BC, SELFPAY ==
--- NOTE | 2024-07-16 17:11 | STRESSREP_ITS ---
Stress Test Report Exercise myocardial perfusion stress test. 64-year-old man with a history of coronary artery disease Stress protocol: Resting EKG demonstrates normal sinus rhythm with a rate of 59 bpm resting blood pressure is 136/84 mmHg. The patient exercised according to the regular Fabian protocol for a total duration of 8 minutes and 11 seconds attaining a maximum heart rate of 125 bpm which was 80% of maximum predicted heart rate; the maximum workload was 10.1 metabolic equivalents. At rest there were no ST or T wave changes noted to suggest ischemia and at peak exercise upsloping ST changes only were noted which did not meet the criteria for ischemia. No clinical angina was noted the test was terminated due to the target heart rate being a chieved/fatigue. The peak blood pressure was 176/80 mmHg. Rate-pressure product was 19,007. Myocardial perfusion protocol. 14.8 mCi of technetium 99m sestamibi was injected at rest. The patient ex ercised according to regular Fabian protocol for total duration of 8 minutes and 11sec and at peak exercise 44.5 mCi of technetium 99m sestamibi was injected stress images were obtained stress and rest images were reconstructed in comparing the short axis vertical long and horizontal long axis. Gated images were also obtained. Perfusion SPECT analysis: Review of the stress images demonstrate normal uptake of tracer noted in all areas of the myocardium. The resting images similarly demonstrate normal uptake of tracer noted in all areas of the myocardium. No areas of reversibility are noted to suggest ischemia no previous infarct was noted. Gated SPECT analysis: The gated ejection fraction is 58%. Conclusion: Normal exercise myocardial perfusion stress test at a high workload Preserved ejection fraction.
== END | disposition home or self-care (01) ==
PROVIDERS: PCP Family Medicine; Referring Provider Nurse Practitioner Family; Visit Provider Nurse Practitioner Family
DX: I25.10 Atherosclerotic heart disease of native coronary artery without angina pectoris (principal)
CPT/HCPCS: 78452; 93017; A9500; A4216

== ENCOUNTER → 2024-10-02 | Outpatient (CLI) | payer BC, SELFPAY ==
--- NOTE | 2024-10-02 06:50 | ECHOD_ITS ---
Reason For Study Reason For Study: EVALUATE AORTIC VALVE Procedure This was a 2D Doppler, Color Flow transthoracic echocardiogram. Exam performed in department. Left Ventricle Normal LV size. Stage 1 diastolic dysfunction. The left ventricular ejection fraction is 65 %. No regional wall motion abnormalities noted. Right Ventricle Normal RV size. Normal systolic function. Atria Normal left atrium. Normal right atrium. Tricuspid Valve Normal tricuspid valve. Mild (1+) tricuspid valve insufficiency. Pulmonary artery systolic pressure is 28 mmHg. Aortic Valve Trisinus/trileaflet aortic valve. Mild focal aortic valve calcification. Peak aortic valve gradient 32 mmHg. Mean aortic valve gradient 19 mmHg. Pulmonic Valve Normal pulmonic valve. Great Vessels Mildly dilated aortic root. The pulmonary artery is normal size. Inferior vena cava collapse with respiration. Pericardium/Pleural No pericardial effusion. MMode/2D Measurements & Calculations LVIDd: 4.7 cm IVSd: 1.3 cm LVOT diam: 2.2 cm LVIDs: 3.1 cm LVPWd: 1.1 cm LVOT area: 3.9 cm2 RVDd: 3.9 cm FS: 35.0 % Ao root diam: 3.9 cm asc Aorta Diam: 3.9 cm LAV(MOD- bp): 57.8 ml LAV(MOD- bp) Indexed: 25.6 ml/m2 LAV(MOD- sp2): 57.5 ml LAV(MOD- sp4): 54.5 ml LVAd ap4: 33.8 cm2 LVAd ap2: 36.4 cm2 SV(MOD- sp4): 65.3 ml LVLd ap4: 8.8 cm LVLd ap2: 8.7 cm SI(MOD- sp4): 29.0 ml/m2 EDV(MOD-sp4): 105.0 ml EDV(MOD-sp2): 122.3 ml EDV(sp4-el): 109.8 ml EDV(sp2-el): 129.4 ml LVAs ap4: 19.5 cm2 LVAs ap2: 19.4 cm2 LVLs ap4: 8.0 cm LVLs ap2: 7.4 cm ESV(MOD-sp4): 39.7 ml ESV(MOD-sp2): 41.3 ml ESV(sp4-el): 40.5 ml ESV(sp2-el): 43.5 ml EF(MOD-sp4): 62.2 % EF(MOD-sp2): 66.2 % EF(sp4-el): 63.1 % SV(MOD-sp2): 81.0 ml SV(sp4-el): 69.3 ml LA A4 area: 18.5 cm2 SI(MOD-sp2): 35.9 ml/m2 LA dimension(2D): 4.8 cm RA A4 area: 15.5 cm2 TAPSE: 2.7 cm Time Measurements MV dec time: 0.29 sec Doppler Measurements & Calculations MV E max torsten: 73.2 cm/sec Lat Peak E' Torsten: 10.9 cm/sec Med Peak E' Torsten: 9.8 cm/sec MV A max torsten: 75.7 cm/sec E/E' lat: 6.7 E/E' med: 7.5 MV E/A: 0.97 MV V2 max: 82.0 cm/sec MV dec slope: 254.4 cm/sec2 Ao V2 max: 284.1 cm/sec MV max P.7 mmHg Ao max P.3 mmHg MV V2 mean: 46.0 cm/sec Ao V2 mean: 212.0 cm/sec MV mean P.0 mmHg Ao mean P.4 mmHg MV V2 VTI: 23.2 cm Ao V2 VTI: 66.4 cm MVA(VTI): 4.1 cm2 AV (velocity ratio): 0.36 ROSA(I,D): 1.4 cm2 ROSA(V,D): 1.4 cm2 LV V1 max: 102.1 cm/sec MR max torsten: 574.2 cm/sec SV(LVOT): 93.8 ml LV V1 max P.2 mmHg MR max P.9 mmHg LV V1 mean P.4 mmHg LV V1 mean: 73.4 cm/sec LV V1 VTI: 24.2 cm PA V2 max: 117.3 cm/sec TR max torsten: 249.1 cm/sec PA V2 mean: 84.4 cm/sec PI dec slope: 422.4 cm/sec2 TR max P.8 mmHg ECHO/Echo Complete Interpretation Summary Stage 1 diastolic dysfunction. Normal LV size. The left ventricular ejection fraction is 65 %. Pulmonary artery systolic pressure is 28 mmHg. Mean aortic valve gradient 19 mmHg. Mild focal aortic valve calcification. Ordering Physician: Navi Jay Referring Physician: Sohail Wolf Performed By: Juany Anderson, RAFIQ, RVT
--- OUTSIDE RECORDS SUMMARY | 2024-10-02 06:52 | XMS RPT_ITS | CCD ---
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 Juan Wolf Primary Care Provider [phone] Darlene Orta Attending Provider Unavailable Dr. Donald Ervin Attending Provider [phone] Dr. Jaun Wolf Primary Care Provider [phone] Dr. Juan Wolf Referring Provider Dr. Georges Arroyo Attending Provider Dr. Georges Arroyo Other Provider Dr. Juan Wolf Other Provider [phone] Shakeel Ervin Attending Provider [phone] Juan Wolf Primary Care Provider Dr. Juan Wolf Referring Provider Dr. Juan Wolf Primary Care Provider Dr. Juan Wolf Referring Provider Dr. Juan Wolf Other Provider [phone] Shakeel Ervin Attending Provider Dr. Fabian Tripp Attending Provider Dr. Sohail Wolf MD Primary Care Provider Roof TRACK [employer]WAY REPAIR SUPERVISOR-C, Navi Glez Attending Provider [phone] Roof [employer]ACK [employer] REPAIR SUPERVISOR-C, Navi H Referring Provider [phone] Roof TRACK [employer]WAY REPAIR SUPERVISOR-C, Navi H Other Provider Dr. Shakeel Ervin MD Attending Provider [phone] Dr. Sohail Wolf MD Referring Provider Roof TRACK SUBWAY REPAIR SUPERVISOR, Navi H Referring Unavailable Roof TRACK SUBWAY REPAIR SUPERVISOR, Navi H Consulting Unavailable Shakeel Ervin Attending Unavailable Sohail Wolf Primary Care Unavailable Roof TRACK SUBWAY REPAIR SUPERVISOR, Navi H Referring Unavailable [facility] Unavailable Roof TRACK SUBWAY REPAIR SUPERVISOR, Navi H Attending Unavailable Roof TRACK SUBWAY REPAIR SUPERVISOR, Navi H Attending Unavailable Sohail Wolf Primary Care Unavailable Sohail Wolf Referring Unavailable Roof TRACK SUBWAY REPAIR SUPERVISOR, Navi Glez Attending Unavailable Sohail Wolf Referring [facility]available [facility] Unavailable Roof TRACK SUBWAY REPAIR SUPERVISOR, Navi H Attending Unavailable Roof TRACK SUBWAY REPAIR SUPERVISOR, Navi H Referring Unavailable [facility] Unavailable [facility] Primary Care Unavailable Sohail Wolf Attending Unavailable Sohail Wolf Referring Unavailable Allergies Allergy Classification Reported Allergen(s) Allergy Type Date of Onset Reaction(s) Facility (13 sources) Cephalexin Drug Allergy 10-20-2020 Rash [facility] (1 source) Penicillin Drug Allergy 10-20-2020 Anaphylaxis [facility] Work Phone: (12 sources) Penicillins Allergy to substance 09-22-2021 Anaphylaxis [facility] (1 source) Cephalexin Drug Allergy 03-20-2024 [facility] Repository (1 source) Penicillins Drug allergy (disorder) 03-20-2024 [facility] Repository Medications Current Medications Medication Drug Class(es) Dates Sig (Normalized) Sig (Original) amLODIPine 5 mg oral tablet (14 sources) Dihydropyridine Calcium Channel Raymond Start: 09-17-2024 End: 09-17-2024 take 1 tablet by mouth twice daily Amlodipine 5 mg tablet Active 5 mg PO TWICE A DAY 180 3 September 17, 2024 12:09pm Start: 03-20-2024 End: 09-17-2024 take 1 tablet by mouth once daily Amlodipine 5 mg tablet Discontinued 5 mg PO daily 90 3 June 24, 2024 10:35am September 17, 2024 12:01pm Start: 03-22-2023 End: 03-20-2024 take 1 tablet by mouth once daily Amlodipine 10 mg tablet Discontinued 10 mg PO DAILY 90 3 June 15, 2023 4:18pm March 20, 2024 12:29pm aspirin 81 mg delayed release oral tablet (6 sources) Platelet Aggregation Inhibitor, Nonsteroidal Anti-inflammatory Drug Start: 03-14-2023 End: 02-21-2024 take 1 tablet by mouth once daily Aspirin 81 mg tablet,delayed release (DR/EC) Active 81 mg PO DAILY 90 3 February 21, 2024 3:29pm atorvastatin 80 mg oral tablet (17 sources) HMG-CoA Reductase Inhibitor Start: 09-17-2024 take 1 tablet by mouth once daily Atorvastatin 80 mg tablet Active 80 mg PO daily 90 3 September 17, 2024 12:09pm Start: 09-17-2024 End: 09-17-2024 take 2 tablets by mouth once daily Atorvastatin 40 mg tablet Discontinued 80 mg PO daily September 17, 2024 11:58am September 17, 2024 12:10pm Start: 03-20-2024 End: 09-17-2024 take 1 tablet by mouth once daily Atorvastatin 40 mg tablet Discontinued 40 mg PO daily March 20, 2024 1:00am September 17, 2024 11:58am Start: 10-05-2020 End: 03-20-2024 take 1 tablet by mouth once daily Atorvastatin 20 mg tablet Discontinued 20 mg PO DAILY October 05, 2020 12:00am March 20, 2024 12:30pm cholecalciferol 0.05 mg oral capsule (4 sources) Vitamin D Start: 03-14-2023 take 1 capsule by mouth once daily Cholecalciferol (Vitamin D3) 50 mcg (2,000 unit) capsule Active 50 ug PO DAILY March 14, 2023 1:00am dapagliflozin 5 mg oral tablet (2 sources) Sodium-Glucose Cotransporter 2 Inhibitor Start: 09-21-2023 take 1 tablet by mouth once daily Dapagliflozin Propanediol (Farxiga) 5 mg tablet Active 5 mg PO daily September 21, 2023 12:00am 24 hr metFORMIN hydrochloride 500 mg extended release oral tablet (20 sources) Biguanide Start: 09-21-2023 take 1 tablet by mouth once daily Metformin 500 mg tablet extended release 24 hr Active 500 mg PO DAILY September 21, 2023 10:31am Start: 10-05-2020 End: 09-21-2023 take 1 tablet by mouth twice daily Metformin 500 mg tablet extended release 24 hr Discontinued 500 mg PO TWICE A DAY October 05, 2020 12:00am September 21, 2023 10:32am Start: 09-08-2017 End: 10-05-2020 take 1 tablet by mouth once daily Metformin 500 mg tablet Discontinued 500 mg PO daily September 08, 2017 12:00am October 05, 2020 1:48pm Multivitamin preparation (8 sources) Start: 08-14-2022 take 1 tablet by mouth once daily Multivitamin Active 1 TABLET PO DAILY August 13, 2022 11:00pm Start: 08-14-2022 take 1 tablet by adama th once daily Multivitamin Active 1 TABLET PO DAILY August 14, 2022 12:00am Multivitamin tablet (2 sources) Start: 08-14-2022 Multivitamin t ablet Active 1 {tbl} PO DAILY August 14, 2022 12:00am pantoprazole 40 mg delayed release oral tablet (1 source) Proton Pump Inhibitor Start: 09-17-2024 take 1 tablet by mouth once daily Pantoprazole 40 mg tablet,delayed release (DR/EC) Active 40 mg PO daily September 17, 2024 12:00am 12 hr ranolazine 1000 mg extended release oral tablet (11 sources) Anti-anginal Start: 09-11-2023 End: 09-08-2024 take 1 tablet by mouth twice daily Ranolazine 1,000 mg tablet extended release 12 hr Active 1000 mg PO TWICE A DAY 180 3 September 08, 2024 7:37am Start: 03-22-2023 End: 09-11-2023 take 1 tablet by mouth every twelve hours Ranolazine 1,000 mg tablet extended release 12 hr Discontinued 1000 mg PO Q12H 60 3 May 02, 2023 1:15pm September 11, 2023 3:33pm Semaglutide (Rybelsus) 7 mg tablet (2 sources) Start: 03-20-2024 take 1 tablet by mouth once daily Semaglutide (Rybelsus) 7 mg tablet Active 7 mg PO daily March 20, 2024 1:00am vitamin B12 (12 sources) Vitamin B12 Start: 03-20-2024 take 1 tablet by mouth once daily Cyanocobalamin (Vitamin B-12) 500 mcg tablet Active 500 ug PO daily March 20, 2024 1:00am Start: 08-14-2022 End: 03-20-2024 take 1 tablet by mouth once daily Cyanocobalamin (Vitamin B-12) (Vitamin B-12) 100 mcg tablet Discontinued 100 ug PO DAILY August 14, 2022 12:00am March 20, 2024 12:31pm Completed/Discontinued Medications Medication Drug Class(es) Dates Sig (Normalized) Sig (Original) 24 hr metoprolol succinate 50 mg extended release oral tablet (8 sources) beta-Adrenergic Raymond Start: 03-14-2023 End: 06-24-2024 take 1 tablet by mouth once daily Metoprolol Succinate (Toprol Xl) 50 mg tablet extended release 24 hr Discontinued 50 mg PO DAILY 90 3 June 15, 2023 2:25pm June 24, 2024 10:36am semaglutide 7 mg oral tablet (11 sources) Start: 08-01-2022 End: 03-14-2023 take 1 tablet by mouth once daily Semaglutide (Rybelsus) 7 mg Tablet Discontinued 7 mg PO DAILY August 01, 2022 12:00am March 14, 2023 2:30pm Semaglutide (Rybelsus) 14 mg tablet (4 sources) Start: 03-14-2023 End: 03-20-2024 take 1 tablet by mouth once daily Semaglutide (Rybelsus) 14 mg tablet Discontinued 14 mg PO DAILY March 14, 2023 1:00am March 20, 2024 12:32pm Start: 03-14-2023 take 1 tablet by adama th once daily Semaglutide (Rybelsus) 14 mg tablet Active 14 MG PO DAILY March 14, 2023 12:00am Problems Active Problems Problem Classification Problem Date Documented Da te Episodic/Chronic Coronary atherosclerosis and other heart disease (4 sources) Triple vessel disease of the heart ; Translations: [Atherosclerotic heart disease of [place] coronary artery without angina pectoris] Onset: 08-06-2024 09-07-2023 Chronic Diabetes mellitus without complication (7 sources) Diabetes mellitus; Translations: [Type 2 diabetes mellitus without complications] Onset: 08-06-2024 02-14-2023 Chronic Disorders of lipid metabolism (14 sources) Hypercholesterole marciano; Translations: [Pure hypercholesterole marciano, unspecified] 08-01-2022 Chronic Heart valve disorders (9 sources) Aortic valve stenosis; Translations: [Nonrheumatic aortic (valve) stenosis] Onset: 09-17-2024 03-14-2023 Chronic Immunizations and screening for infectious disease (15 sources) Patient encounter status; Translations: [Encounter for screening for COVID-19] 12-15-2020 Episodic Malaise and fatigue (4 sources) Fatigue; Translations: [Other fatigue] 03-14-2023 Episodic Nonspecific chest pain (7 sources) Chest pain; Translations: [Chest pain, unspecified] 03-14-2023 Episodic Other and unspecified benign neoplasm (8 sources) History of polyp of colon; Translations: [Personal history of colonic polyps] 09-19-2022 Episodic Other and unspecified benign neoplasm (2 sources) Personal history of colonic polyps; Translations: [Personal history of colonic polyps] 09-19-2022 Episodic Other gastrointestinal disorders (1 source) Alteration in bowel elimination; Translations: [Change in bowel habit] Episodic Other gastrointestinal disorders (8 sources) Altered bowel function; Translations: [Change in bowel habit] 09-14-2017 Episodic Other lower respiratory disease (9 sources) Cough; Translations: [Cough] 12-15-2020 Episodic Other lower respiratory disease (4 sources) Dyspnea; Translations: [Dyspnea, unspecified] 03-14-2023 Episodic Other lower respiratory disease (2 sources) Other forms of dyspnea; Translations: [Other forms of dyspnea] Onset: 09-17-2024 Episodic Other skin disorders (13 sources) Sebaceous cyst of skin; Translations: [Sebaceous cyst] 10-05-2020 Episodic Other skin disorders (2 sources) Cyst of neck 10-05-2020 Episodic Comment on above: Posterior neck Dariela-; endo-; and myocarditis; cardiomyopathy (except that caused by tuberculosis or sexually transmitted disease) (6 sources) Heart valve regurgitation; Translations: [Endocarditis, valve unspecified] Onset: 08-06-2024 02-14-2023 Chronic Unclassified (11 sources) Cyst of neck; Translations: [Cyst of neck] 10-05-2020 Past or Other Problems Problem Classification Problem Date Documented Date Episodic/Chronic Nutritional deficiencies (1 source) Deficiency of other specified B group vitamins; Translations: [Deficiency of other specified B group vitamins] Onset: 03-14-2024 Episodic Residual codes; unclassified (13 sources) History of colonoscopy; Translations: [Other specified postprocedural states] Onset: 09-15-2017 10-05-2020 Episodic Results Test Name Value Interpretation Reference Range Facility Cardiology Visit Reporton Cardiology Visit Report [facility] [address] [place] [address] OFFICE VISIT Date of Service: 09/17/24 MR#: [id number] Acct: [id number] Name: LINDSAY WEIR LUKAS Rep #: [id number] : 1960 Provider: SONNY gomez Age/Sex: 64/M Location: [facility] Status: Signed HPI HPI History of Present Illness Details: 64-year-old man who comes in for evaluation of chest heaviness as well as evaluation of a heart murmur. He does not have any previous cardiac history but says that over the last few months you had noticed that he had a heart murmur. He has complained of chest heaviness with little activity no dizziness occasional palpitations and shortness of breath with minimal activity. He has not had any pedal edema. He has been on no medication. He was evaluated for pulmonary issues and was noted to have mild obstructive sleep apnea. As part of his workup he had lab work done which was fairly stable lipid profile demonstrated total cholesterol of 161, HDL of 38 and LDL of 51. Echocardiogram done which demonstrated preserved left ventricular systolic function, mild concentric left ventricular hyper Trophy, thickened aortic valve with mild aortic regurgitation the peak gradient of 18 mmHg and a mean gradient of 10 mmHg his aortic root was mildly dilated. 10 years ago he had a mean gradient of 2.8 mmHg. A stress test done at the maximum workload of 10.1 metabolic equivalents demonstrated no obvious ischemia present. Cardiac cath demonstrated triple vessel disease with preserved function. Medical therapy recommended. Stress test in September 2023 was negative for ischemia and done via pharmacological due to leg issue/injury. He continues with chest pressure. This occurs randomly. He noted this when shuffling snow, but not with other exertional activity such a pickle ball. He may note the pressure after activity at rest. He acknowledges palpitations that he describes as thumping. He states bilateral lower extremity edema when on his feet all day. He denies claudication. He states shortness of breath with activity over the last 3-4 weeks. He noted this with yardwork such as burning papers, walking about his hard, or changing bird seed. This is better than one year a go. Both chest pain and shortness of breath are intermittent. He denies shortness of breath at rest, orthopnea, or PND. He denies chronic cough. He denies significant, sudden weight gain. He states lightheadedness with position changes after long periods of sitting. He denies dizziness, near-syncope, or syncope. He denies blood in urine, blood in stool, or epistaxis. He denies fever with chills. He denies myalgia. He states fatigue in the evening sooner than he expects. His exercise level has remained stable. 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 Is patient in pain?: No Allergies cephalexin (From Keflex) Allergy (Mild, Verified 03/20/24 11:29) Rash Penicillins Allergy (Verified 03/20/24 11:29) Anaphylaxis Medications ???Medication ???Instructions ???Recorded ???Confirmed ???Type multivitamin 1 tab PO DAILY 08/14/22 09/17/24 H istory cholecalciferol (vitamin D3) 50 50 mcg PO DAILY 03/14/23 09/17/24 History mcg (2,000 unit) capsule dapagliflozin propanediol 5 mg 5 mg PO QDAY 09/21/23 09/17/24 His tory tablet (Farxiga) metformin 500 mg tablet,extended 500 mg PO DAILY 09/21/23 09/17/24 History release 24 hr aspirin 81 mg tablet,delayed 81 mg PO DAILY #90 TABLETS 4 09/17/24 Rx release cyanocobalamin (vitamin B-12) 500 500 mcg PO QDAY 03/20/24 09/17/24 History mcg tablet semaglutide 7 mg tablet (Rybelsus) 7 mg PO QDAY 03/20/24 09/17/24 H istory metoprolol succinate 50 mg 50 mg PO DAILY #90 tabs 06/24/24 0 09/17/24 Rx tablet,extended release 24 hr (Toprol XL) ranolazine 1,000 mg 1,000 mg PO BID #180 TABLETS 09/0809/17/24 Rx tablet,extended release,12 hr amlodipine 5 mg tablet 5 mg PO BID #180 tabs 09/17/24 Rx atorvastatin 80 mg tablet 80 mg PO QDAY #90 tabs 09/17/24 Rx pantoprazole 40 mg tablet,delayed 40 mg PO QDAY 09/17/24 09/17/24 H istory release Ejection fraction %: 65 Have you fallen in the past year?: No PFSH Medical History Fatigue Aortic stenosis Dyspnea Personal history of colonic polyps Diverticulosis Hx of adenomatous polyp of colon Back pain Leaky heart valve History of rheumatic fever Chest discomfort Sebaceous cyst High blo (more content not included)... Normal [facility] Cardiovascular stress test r eportOrdered By: Shakeel Ervin on 07-16-2024 Study report [facility] [address] [place] [id number] MR#: [id number] Acct: [id number] Name: LINDSAY WEIR LUKAS Rep #: [id number] : 1960 64 From: Shakeel Ervin MD Primary Care: Dr. Sohail Wolf MD Status: REG CLI Referring Dr: Navi Jay NP TRACK SUBWAY REPAIR SUPERVISOR-C Sex: M C Stress Test Report Exercise myocardial perfusion stress test. 64-year-old man with a history of coronary artery disease Stress protocol: Resting EKG demonstrates normal sinus rhythm with a rate of 59 bpm resting bloodpressure is 136/84 mmHg. The patient exercised according to the regular Fabian protocol for a total duration of 8 minutes and 11 seconds attaining a maximum heart rate of 125 bpm which was 80% of maximum predicted heart rate; the maximumworkload was 10.1 metabolic equivalents. At rest there were no ST or T wave changes noted to suggest ischemia and at peak exercise upsloping ST changes onlywere noted which did not meet the criteria for ischemia. No clinical angina wasnoted the test was terminated due to the target heart rate being achieved/fatigue. The peak blood pressure was 176/80 mmHg. Rate-pressure product was 19,007. Myocardial perfusion protocol. 14.8 mCi of technetium 99m sestamibi was injected at rest. The patient exercised according to regular Fabian protocol for total duration of 8 minutes and 11sec and at peak exercise 44.5 mCi of technetium 99m sestamibi was injectedstress images were obtained stress and rest images were reconstructed in comparing the short axis vertical long and horizontal long axis. Gated images were also obtained. Perfusion SPECT analysis: Review of the stress images demonstrate normal uptake of tracer noted in all areas of the myocardium. The resting images similarly demonstrate normal uptakeof tracer noted in all areas of the myocardium. No areas of reversibility are noted to suggest ischemia no previous infarct was noted. Gated SPECT analysis: The gated ejection fraction is 58%. Conclusion: Normal exercise myocardial perfusion stress test at a high workload Preserved ejection fraction. 07/16/241713 Date _ Shakeel Ervin MD CC: TRACK SUBWAY REPAIR SUPERVISOR-C Navi Jay; Dr. Sohail Wolf MD ~ Date Dictated: 07/16/241710 Date Transcribed: 07/16/241710 Claim Clerk: [place] Signed [facility] Work Phone: Stress Reporton 07-16-2024 Stress Report [facility] [address] [place], [place] [id number] MR#: [id number] Acct: [id number] Name: LINDSAY WEIR LUKAS Rep #: [id number] : 1960 64 From: Shakeel Ervin MD Primary Care: Dr. Sohail Wolf MD Status: REG CLI Referring Dr: Navi Jya NP TRACK [employer]WAY REPAIR SUPERVISOR-C Sex: M C Stress Test Report Exercise myocardial perfusion stress test. 64-year-old man with a history of coronary artery disease Stress protocol: Resting EKG demonstrates normal sinus rhythm with a rate of 59 bpm resting blood pressure is 136/84 mmHg. The patient exercised according to the regular Fabian protocol for a total duration of 8 minutes and 11 seconds attaining a maximum heart rate of 125 bpm which was 80% of maximum predicted heart rate; the maximum workload was 10.1 metabolic equivalents. At rest there were no ST or T wave changes noted to suggest ischemia and at peak exercise upsloping ST changes only were noted which did not meet the criteria for ischemia. No clinical angina was noted the test was terminated due to the target heart rate being achieved/fatigue. The peak blood pressure was 176/80 mmHg. Rate- pressure product was 19,007. Myocardial perfusion protocol. 14.8 mCi of technetium 99m sestamibi was injected at rest. The patient exercised according to regular Fabian protocol for total duration of 8 minutes and 11sec and at peak exercise 44.5 mCi of technetium 99m sestamibi was injected stress images were obtained stress and rest images were reconstructed in comparing the short axis vertical long and horizontal long axis. Gated images were also obtained. Perfusion SPECT analysis: Review of the stress images demonstrate normal uptake of tracer noted in all areas of the myocardium. The resting images similarly demonstrate normal uptake of tracer noted in all areas of the myocardium. No areas of reversibility are noted to suggest ischemia no previous infarct was noted. Gated SPECT analysis: The gated ejection fraction is 58%. Conclusion: Normal exercise myocardial perfusion stress test at a high workload Preserved ejection fraction. 07/16/241713 Date Shakeel Ervin MD CC: SONNY Jay; Dr. Sohail Wolf MD Date Dictated: 07/16/241710 Date Transcribed: 07/16/241710 Claim Clerk: [place] Signed Normal [facility] Cardiology Visit Reporton Cardiology Visit Report [facility] [address] [place] [address]. [address] [place] [address] OFFICE VISIT Date of Service: 03/20/24 MR#: [id number] Acct: [id number] Name: LINDSAY WEIR LUKAS Rep #: [id number] : 1960 Provider: SONNY gomez Age/Sex: 63/M Location: [facility] Status: Signed HPI HPI History of Present Illness Details: 63-year-old man who comes in for evaluation of chest heaviness as well as evaluation of a heart murmur. He does not have any previous cardiac history but says that over the last few months you had noticed that he had a heart murmur. He has complained of chest heaviness with little activity no dizziness occasional palpitations and shortness of breath with minimal activity. He has not had any pedal edema. He has been on no medication. He was evaluated for pulmonary issues and was noted to have mild obstructive sleep apnea. As part of his workup he had lab work done which was fairly stable lipid profile demonstrated total cholesterol of 161, HDL of 38 and LDL of 51. Echocardiogram done which demonstrated preserved left ventricular systolic function, mild concentric left ventricular hyper Trophy, thickened aortic valve with mild aortic regurgitation the peak gradient of 18 mmHg and a mean gradient of 10 mmHg his aortic root was mildly dilated. 10 years ago he had a mean gradient of 2.8 mmHg. A stress test done at the maximum workload of 10.1 metabolic equivalents demonstrated no obvious ischemia present. Cardiac cath demonstrated triple vessel disease with preserved function. Medical therapy recommended. Stress test in September 2023 was negative for ischemia and done via pharmacological due to leg issue/injury. He continues with chest pressure. This occurs randomly. He noted this when shuffling snow, but not with other exertional activity such a pickle ball. He may note the pressure after activity at rest. He denies palpitations. He states bilateral lower extremity edema when on his feet all day. He denies claudication. He states shortness of breath with activity over the last 3-4 weeks. He noted this with yardwork such as burning papers, walking about his hard, or changing bird seed. This is better than one year a go. He denies shortness of breath at rest, orthopnea, or PND. He denies chronic cough. He denies significant, sudden weight gain. He states lightheadedness with position changes after long periods of sitting. He denies dizziness, near-syncope, or syncope. He denies blood in urine, blood in stool, or epistaxis. He denies fever with chills. He denies myalgia. He states fatigue in the evening sooner than he expects. His exercise level has remained stable. Intake Vital Signs 09/21/23 10:28 03/20/24 11:26 Height 5 ft 10 in 5 ft 10 in Weight: 243 lb 247 lb BMI 34.8 35.4 BP 125/77 H 138/82 H Blood Pressure Location Lt brachial Lt brachial Position Sitting Sitting Respiration 16 18 Pulse 56 L 61 Pulse Source Monitor NIBP Intake Visit Reasons: 6 M FU [employer] Required: No Is patient in pain?: No Allergies cephalexin (From Keflex) Allergy (Mild, Verified 03/20/24 11:29) Rash Penicillins Allergy (Verified 03/20/24 11:29) Anaphylaxis Medications ???Medication ???Instructions ???Recorded ???Confirmed ???Type multivitamin 1 tab PO DAILY 08/14/22 03/20/24 History cholecalciferol (vitamin D3) 50 50 mcg PO DAILY 03/14/23 03/20/24 History mcg (2,000 unit) capsule metoprolol succinate 50 mg 50 mg PO DAILY #90 tabs 06/15/23 03/20/24 Rx tablet,extended release 24 hr (Toprol XL) ranolazine 1,000 mg 1,000 mg PO BID #60 TABLETS 09/11/23 03/20/24 Rx tablet,extended release,12 hr dapagliflozin propanediol 5 mg 5 mg PO QDAY 09/21/23 03/20/24 History tablet (Farxiga) metformin 500 mg tablet,extended 500 mg PO DAILY 09/21/23 03/20/24 History release 24 hr aspirin 81 mg tablet,delayed 81 mg PO DAILY #90 TABLETS 02/21/24 03/20/24 Rx release amlodipine 5 mg tablet 5 mg PO QDAY 03/20/24 03/20/24 History atorvastatin 40 mg tablet 40 mg PO QDAY 03/20/24 03/20/24 History cyanocobalamin (vitamin B-12) 500 500 mcg PO QDAY 03/20/24 03/20/24 History mcg tablet semaglutide 7 mg tablet (Rybelsus) 7 mg PO QDAY 03/20/24 03/20/24 History Ejection fraction %: 65 Have you fallen in the past year?: No PFSH Medical History Fatigue Aortic stenosis Dyspnea Personal history of colonic polyps Diverticulosis Hx of adenomatous polyp of colon Back pain Leaky heart valve History of rheumatic fever Chest discomfort Sebaceous cyst High blood cholesterol Cyst of neck Diabetes Surgical History Hx of endoscopic sinus surgery Hx of nasal septoplasty History of colonoscopy (09/15/17) H/O hernia repair (more content not included)... Normal [facility] Comprehensive Metabolic Prof tate 02-12-2024 Albumin [Mass/Vol] 3.8 g/dL Normal 3.2-5.0 [facility] Comment on above: Order Comment: Order Date: 02/11/24 Order Info: [id number] - CMP Order Info: [id number] - LIPID Performed By: #### L 500.4100, [id number], [id number] #### [facility] Laboratory [address] [place], [address] Albumin/Globulin [Mass ratio] 1.2 {ratio} Normal 0.9-2.4 [facility] Comment on above: Order Comment: Order Date: 02/11/24 Order Info: [id number] - CMP Order Info: [id number] - LIPID Performed By: #### L 500.4100, [id number], [id number] #### [facility] [address] [place], [address] ALK P 57 U/L Normal 45-117 [facility] Comment on above: Order Comment: Order Date: 02/11/24 Order Info: [id number] - CMP Order Info: [id number] - LIPID Performed By: #### L 500.4100, [id number], [id number] #### [facility] [address] [place], [address] ALT [Catalytic activity/Vol] 28 U/L Normal 16-61 [facility] Comment on above: Order Comment: Order Date: 02/11/24 Order Info: [id number] - CMP Order Info: [id number] - LIPID Performed By: #### L 500.4100, [id number], [id number] #### [facility] [address] [place], [address] AST [Catalytic activity/Vol] 18 U/L Normal 15-37 [facility] Comment on above: Order Comment: Order Date: 02/11/24 Order Info: [id number] - CMP Order Info: [id number] - LIPID Performed By: #### L 500.4100, [id number], [id number] #### [facility] [address] [place], [address] Bilirubin [Mass/Vol] 1.10 mg/dL High 0.20-1.00 [facility] Comment on above: Order Comment: Order Date: 02/11/24 Order Info: [id number] - CMP Order Info: [id number] - LIPID Result Comment: For patients on eltrombopag therapy, use of Dimension Huntley TBIL is not recommended. Performed By: #### L 500.4100, [id number], [id number] #### [facility] [address] [place], [address] BUN/CRE 12.4 RATIO Normal 10-20 [facility] Comment on above: Order Comment: Order Date: 02/11/24 Order Info: [id number] - CMP Order Info: [id number] - LIPID Performed By: #### L 500.4100, [id number], [id number] #### [facility] [address] [place], [address] CA,Total 9.2 mg/dL Normal 8.5-10.1 [facility] Comment on above: Order Comment: Order Date: 02/11/24 Order Info: [id number] - CMP Order Info: [id number] - LIPID Performed By: #### L 500.4100, [id number], [id number] #### [facility] [address] [place], [address] Chloride [Moles/Vol] 110 mmol/L High 98-107 [facility] Comment on above: Order Comment: Order Date: 02/11/24 Order Info: [id number] - CMP Order Info: [id number] - LIPID Performed By: #### L 500.4100, [id number], [id number] #### [facility] [address] [place], [address] CO2 [Moles/Vol] 22.0 mmol/L Normal 21.0-32.0 [facility] Comment on above: Order Comment: Order Date: 02/11/24 Order Info: [id number] - CMP Order Info: - LIPID Performed By: #### L 500.4100, [id number], [id number] #### [facility] [address] [place], [address] Creatinine [Mass/Vol] 1.45 mg/dL High 0.70-1.30 [facility] Comment on above: Order Comment: Order Date: 02/11/24 Order Info: [id number] - CMP Order Info: - LIPID Result Comment: The validity of the calculated GFR GFRAA in patients over 70 years has not been determined. Clinical correlation is essential. Performed By: #### L 500.4100, [id number], [id number] #### [facility] [address] [place], [address] EST GFR - AA 63 mL/min Normal >60 [facility] Comment on above: Order Comment: Order Date: 02/11/24 Order Info: [id number] - CMP Order Info: [id number] - LIPID Result Comment: Afri can Uzbek GFR Calc Performed By: #### L 500.4100, [id number], [id number] #### [facility] [address] [place], [address] GAP 8 Normal 5-15 [facility] Comment on above: Order Comment: Order Date: 02/11/24 Order Info: [id number] - CMP Order Info: [id number] - LIPID Performed By: #### L 500.4100, [id number], [id number] #### [facility] [address] [place], [place], [address] GFR/1.73 sq M.predicted among non-blacks MDRD (S/P/Bld) [Vol rate/Area] 52 mL/min/{1.73_m2} Low >60 [facility] Comment on above: Order Comment: Order Date: 02/11/24 Order Info: [id number] - CMP Order Info: [id number] - LIPID Result Comment: Non- GFR Calc Performed By: #### L 500.4100, [id number], [id number] #### [facility] [address] [place], [address] Globulin (S) [Mass/Vol] 3.2 g/dL Normal 2.2-4.2 [facility] Comment on above: Order Comment: Order Date: 02/11/24 Order Info: [id number] - CMP Order Info: [id number] - LIPID Performed By: #### L 500.4100, [id number], [id number] #### [facility] [address] [place], [address] Glucose [Mass/Vol] 124 mg/dL High 74-106 [facility] Comment on above: Order Comment: Order Date: 02/11/24 Order Info: [id number] - CMP Order Info: [id number] - LIPID Result Comment: Fast ing Glucose result from 100 to 125 mg/dL suggests IMPAIRED HOMEOSTASIS per A.D.A. criteria. Performed By: #### L 500.4100, [id number], [id number] #### [facility] [address] [place], [address] Potassium [Moles/Vol] 4.0 mmol/L Normal 3.5-5.1 [facility] Comment on above: Order Comment: Order Date: 02/11/24 Order Info: [id number] - CMP Order Info: [id number] - LIPID Performed By: #### L 500.4100, [id number], [id number] #### [facility] [address] [place], [address] Sodium [Moles/Vol] 140 mmol/L Normal 136-145 [facility] Comment on above: Order Comment: Order Date: 02/11/24 Order Info: [id number] - CMP Order Info: [id number] - LIPID Performed By: #### L 500.4100, [id number], [id number] #### [facility] [address] [place], [address] T PROT 7.0 g/dL Normal 6.4-8.2 [facility] Comment on above: Order Comment: Order Date: 02/11/24 Order Info: [id number] - CMP Order Info: [id number] - LIPID Performed By: #### L 500.4100, [id number], [id number] #### [facility] [address] [place], [address] Urea nitrogen [Mass/Vol] 18 mg/dL Normal 7-18 [facility] Comment on above: Order Comment: Order Date: 02/11/24 Order Info: [id number] - CMP Order Info: [id number] - LIPID Performed By: #### L 500.4100, [id number], [id number] #### [facility] [address] [place], [address] Lipid Profileon 02-12-2024 Cholesterol [Mass/Vol] 199 mg/dL Normal 200 [facility] Comment on above: Order Comment: Order Date: 02/11/24 Order Info: [id number] - CMP Order Info: [id number] - LIPID Result Comment: <200 mg/dL Desirable 200-240 mg/dL Borderline >240 mg/dL High Risk Performed By: #### L 500.4100, [id number], [id number] #### [facility] [address] [place], [address] Cholesterol in HDL [Mass/Vol] 44 mg/dL Normal [facility] Comment on above: Order Comment: Order Date: 02/11/24 Order Info: [id number] - CMP Order Info: [id number] - LIPID Result Comment: The drugs N-Acetylcysteine and Metamizole may falsely depress this assay. Reference Range HDL <40 mg/dL Low HDL Cholesterol HDL >or= 60 mg/dL High HDL Cholesterol Performed By: #### L 500.4100, [id number], [id number] #### [facility] [address] [place], [address] Cholesterol in LDL [Mass/Vol] 103 mg/dL Normal 0-130 [facility] Comment on above: Order Comment: Order Date: 02/11/24 Order Info: [id number] - CMP Order Info: [id number] - LIPID Performed By: #### L 500.4100, [id number], [id number] #### [facility] [address] [place], [address] Cholesterol in VLDL [Mass/Vol] 52 mg/dL High 5-40 [facility] Comment on above: Order Comment: Order Date: 02/11/24 Order Info: [id number] - CMP Order Info: [id number] - LIPID Performed By: #### L 500.4100, [id number], [id number] #### [facility] [address] [place], [address] Triglyceride [Mass/Vol] 262 mg/dL High [facility] Comment on above: Order Comment: Order Date: 02/11/24 Order Info: [id number] - CMP Order Info: [id number] - LIPID Result Comment: The drugs N-Acetylcysteine and Metamizole may falsely depress this assay. Serum Triglycerides Reference Interval Normal <150 mg/dL Borderline high 150 - 199 mg/dL High 200 - 499 mg/dL Very High > or = 500 mg/dL Performed By: #### L 500.4100, [id number], [id number] #### [facility] [address] [place], [address] Vitamin B12on 02-12-2024 Cobalamin (Vitamin B12) [Mass/Vol] 966 pg/mL High 211-911 [facility] Comment on above: Order Comment: Order Date: 02/11/24 Order Info: [id number] - B12 Performed By: #### L 500.4100, [id number], [id number] #### [facility] [address] [place], [address] Absolute lymphocyte countOrd ered By: Shakeel Ervin on 03-14-2023 Lymphocytes Auto (Unsp spec) [#/Vol] 1.73 10*3/uL 0.83-4.51 [facility] Basophil percentageOrdered B y: [place] Ervin on 03-14-2023 Basophils/100 WBC (Bld) 0.8 % 0-[address] [facility] Chloride [Moles/Vol] 106 mmol/L 98-107 [facility] Eosinophils/100 WBC (Bld) 3.7 % 0-5 [facility] Glucose [Mass/Vol] 210 mg/dL 74-106 [facility] Comment on above: Glucose result great er than or equal to 200 mg/dLsuggests DIABETES MELLITUS per A.D.A. criteria. Neutrophils (Bld) [#/Vol] 4.7 10*3/uL 2.0-7.7 [facility] Neutrophils/100 WBC (Bld) 62.2 % 47-70 [facility] Potassium [Moles/Vol] 4.1 mmol/L 3.5-5.1 [facility] Sodium [Moles/Vol] 138 mmol/L 136-145 [facility] WBC (Bld) [#/Vol] 7.5 10*3/uL 4.4-11.0 [facility] Blood erythrocytes count (nu mber/volume)Ordered By: Shakeel Ervin on 03-14-2023 RBC (Bld) [#/Vol] 5.10 10*6/uL 4.6-6.[address] [facility] Blood hemoglobin measurement (mass/volume)Ordered By: Shakeelcarlota Ervin on 03-14-2023 Hemoglobin (Bld) [Mass/Vol] 15.2 g/dL 13.0-16.5 [facility] Blood lymphocytes/100 leukoc ytesOrdered By: Shakeelcarlota Ervin on 03-14-2023 Lymphocytes/100 WBC (Bld) 23.1 % 19-41 [facility] Blood monocytes/100 leukocyt esOrdered By: [place] Arcadio on 03-14-2023 Monocytes/100 WBC (Bld) 9.9 % 0-[address] [facility] Blood platelet mean volumeOr dered By: [place] Arcadio on 03-14-2023 Platelet mean volume (Bld) [Entitic vol] 10.3 fL 6.2-12.0 [facility] Determination of erythrocyte mean corpuscular volume (MCV)Ordered By: Shakeel Ervin on 03-14-2023 MCV (RBC) [Entitic vol] 87.3 fL 80-[address] [facility] Hematocrit Auto (Bld) [Volum e fraction]Ordered By: Shakeel Ervin on 03-14-2023 Hematocrit (Bld) [Volume fraction] 44.5 % 40-54 [facility] Laboratory - Chemistry and C hemistry - challengeOrdered By: Shakeel Ervin on 03-14-2023 CO2 [Moles/Vol] 24.0 mmol/L 21.0-32.0 [facility] Urea nitrogen/Creatinine [Mass ratio] 10.7 mg/mg 10-20 [facility] Laboratory - Hematology and Cell countsOrdered By: Shakeel Ervin on 03-14-2023 Erythrocyte distribution width (RBC) [Entitic vol] 40.9 fL 35.1-43.9 [facility] Erythrocyte distribution width (RBC) [Ratio] 12.8 % 11.6-14.6 [facility] Immature granulocytes/100 WBC (Bld) 0.300 % 0.0-0.9 [facility] Comment on above: IG% - Immature Granu locytes (promyelocytes, myelocytes and metamyelocytes) > 1% indicates that a LEFT SHIFT is Present. MCH (RBC) [Entitic mass] 29.8 pg 27.0-32.0 [facility] Nucleated RBC/100 WBC (Bld) [Ratio] 0 % 0-5 [facility] MCHC Auto (RBC) [Mass/Vol]Or dered By: [place] Arcadio on 03-14-2023 MCHC (RBC) [Mass/Vol] 34.2 g/dL 32-36 [facility] No Panel InformationOrdered By: Shakeel Ervin on 03-14-2023 Estimated GFR (MDRD) Amer 71 mL/min >60 [facility] Comment on above: GFR Calc Estimated GFR (MDRD) Non-Af Amer 59 mL/min >60 [facility] Comment on above: Non- GFR Calc Platelets bldOrdered By: Thanh Ervin on 03-14-2023 Platelets (Bld) [#/Vol] 180 10*3/uL 150-450 [facility] Serum or plasma calcium marquez urement (mass/volume)Ordered By: Shakeel Ervin on 03-14-2023 Calcium [Mass/Vol] 9.3 mg/dL 8.5-10.1 [facility] Serum or plasma creatinine m easurement (mass/volume)Ordered By: Shakeel Ervin on 03-14-2023 Creatinine [Mass/Vol] 1.31 mg/dL 0.70-1.30 [facility] Comment on above: The validity of the calculated GFR & GFRAA in patients over 70 years has not been determined. Clinical correlation is essential. Serum or plasma urea nitroge n measurement (mass/volume)Ordered By: Shakeel Ervin on 03-14-2023 Urea nitrogen [Mass/Vol] 14 mg/dL 7-18 [facility] Thin prep Papanicolaou smear with manual screeningOrdered By: Shakeel Ervin on 03-14-2023 Thin prep Papanicolaou smear with manual screening 8 5-15 [facility] Basophil percentageOrdered B y: Juan Wolf on 02-01-2023 Bilirubin [Mass/Vol] 0.80 mg/dL 0.20-1.00 [facility] Comment on above: For patients on eltr ombopag therapy, use of Dimension [place] TBIL is not recommended. Chloride [Moles/Vol] 105 mmol/L 98-107 [facility] Cholesterol [Mass/Vol] 161 mg/dL <200 [facility] Comment on above: <200 mg/dL Desirable 200-240 mg/dL Borderline >240 mg/dL High Risk Glucose [Mass/Vol] 145 mg/dL 74-106 [facility] Comment on above: Fasting Glucose resu lt greater than or equal to 126 mg/dL suggests DIABETES MELLITUS per A.D.A. criteria. Potassium [Moles/Vol] 4.0 mmol/L 3.5-5.1 [facility] Protein [Mass/Vol] 6.8 g/dL 6.4-8.2 [facility] Sodium [Moles/Vol] 139 mmol/L 136-145 [facility] Testosterone [Mass/Vol] 405.99 ng/dL [facility] Comment on above: CENTRAL 90% REFERENC E RANGES MALE AGE <50 197.44 - 669.58 ng/dL MALE AGE > or = 50 187.72 - 684.19 ng/dL FEMALE AGE <50 8.38 - 35.01 ng/dL FEMALE AGE > or = 50 <7.00 - 35.92 ng/dL Effective as of 09/28/20 Triglyceride [Mass/Vol] 360 mg/dL <[address] [facility] Comment on above: The drugs N-Acetylcy steine and Metamizole may falsely depress this assay.Serum Triglycerides Reference Interval Normal <150 mg/dL Borderline high 150 - 199 mg/dL High 200 - 499 mg/dL Very High > or = 500 mg/dL Bilirubin Test strip Ql (U)O rdered By: Juan Wolf on 02-01-2023 Bilirubin Ql (U) Negative Negative [facility] Ketones Test strip Ql (U)Ord ered By: Juan Wolf on 02-01-2023 Ketones Ql (U) Negative Negative [facility] Laboratory - Chemistry and C hemistry - challengeOrdered By: Juan Wolf on 02-01-2023 ALP [Catalytic activity/Vol] 55 U/L 45-117 [facility] ALT [Catalytic activity/Vol] 69 U/L 16-61 [facility] CO2 [Moles/Vol] 26.0 mmol/L 21.0-32.0 [facility] Globulin (S) [Mass/Vol] 3.2 g/dL 2.2-4.[address] [facility] Urea nitrogen/Creatinine [Mass ratio] 12.4 mg/mg 10-20 [facility] Nitrite Test strip Ql (U)Ord ered By: Juan Wolf on 02-01-2023 Nitrite Ql (U) Negative Negative [facility] No Panel InformationOrdered By: Juan Wolf on 02-01-2023 Estimated GFR (MDRD) Amer 78 mL/min >60 [facility] Comment on above: GFR Calc Estimated GFR (MDRD) Non-Af Amer 64 mL/min >60 [facility] Comment on above: Non- GFR Calc Protein Test strip Ql (U)Ord ered By: Juan Wolf on 02-01-2023 Protein Ql (U) Negative Negative [facility] Serum or plasma albumin marquez urement (mass/volume)Ordered By: Juan Wolf on 02-01-2023 Albumin [Mass/Vol] 3.6 g/dL 3.2-5.0 [facility] Serum or plasma albumin/glob ulin mass ratioOrdered By: Juan Wolf on 02-01-2023 Albumin/Globulin [Mass ratio] 1.1 {ratio} 0.9-2.4 [facility] Serum or plasma calcium marquez urement (mass/volume)Ordered By: Juan Wolf on 02-01-2023 Calcium [Mass/Vol] 8.3 mg/dL 8.5-10.1 [facility] Serum or plasma cholesterol in HDL measurement (mass/volume)Ordered By: Juan Wolf on 02-01-2023 Cholesterol in HDL [Mass/Vol] 38 mg/dL >40 [facility] Comment on above: The drugs N-Acetylcy steine and Metamizole may falsely depress this assay. Reference Range HDL <40 mg/dL Low HDL Cholesterol HDL >or= 60 mg/dL High HDL Cholesterol Serum or plasma cholesterol in VLDL measurement (mass/volume)Ordered By: Juan Wolf on 02-01-2023 Cholesterol in VLDL [Mass/Vol] 72 mg/dL 5-40 [facility] Serum or plasma creatinine m easurement (mass/volume)Ordered By: Juan Wolf on 02-01-2023 Creatinine [Mass/Vol] 1.21 mg/dL 0.70-1.30 [facility] Comment on above: The validity of the calculated GFR & GFRAA in patients over 70 years has not been determined. Clinical correlation is essential. Serum or plasma low density lipoprotein (LDL) cholesterol measurement (mass/volume)Ordered By: Juan Wolf on 02-01-2023 Cholesterol in LDL [Mass/Vol] 51 mg/dL 0-130 [facility] Serum or plasma urea nitroge n measurement (mass/volume)Ordered By: Juan Wolf on 02-01-2023 Urea nitrogen [Mass/Vol] 15 mg/dL 7-18 [facility] Thin prep Papanicolaou smear with manual screeningOrdered By: Juan Wolf on 02-01-2023 Thin prep Papanicolaou smear with manual screening 35 U/L 15-37 [facility] Thin prep Papanicolaou smear with manual screening 8 5-15 [facility] Thin prep Papanicolaou smear with manual screening 7.5 mg/L NO RANGE EST. [facility] Urine blood detectionOrdered By: Juan Wolf on 02-01-2023 RBC Ql (U) Negative Negative [facility] Urine clarityOrdered By: Ashlee Wolf on 02-01-2023 Clarity (U) Clear Clear [facility] Urine color determinationOrd ered By: Juan Wolf on 02-01-2023 Color (U) Yellow Yellow [facility] Urine glucose detectionOrder ed By: Juan Wolf on 02-01-2023 Glucose Ql (U) 100 mg/dl Normal [facility] Urine leukocyte esterase det ection by dipstickOrdered By: Juan Wolf on 02-01-2023 Leukocyte esterase Test strip Ql (U) Negative Negative [facility] Urine pHOrdered By: Kyler Wolf on 02-01-2023 pH (U) 6.5 [pH] 5.0 - 8.0 [facility] Urine specific gravity measu rementOrdered By: Juan Wolf on 02-01-2023 Specific gravity (U) [Rel density] 1.015 1.002-1.030 [facility] Urobilinogen Auto test strip Ql (U)Ordered By: Juan Wolf on 02-01-2023 Urobilinogen Ql (U) Normal mg/dl Normal [facility] Glucose Glucometer (BldC) [M ass/Vol]Ordered By: Georges Arroyo on 09-19-2022 Glucose [Mass/Vol] 127 mg/dL 74-106 [facility] Comment on above: MANAGEMENT OF PATIEN T CARE PER NURSING PROTOCOL Laboratory - Chemistry and C hemistry - challengeOrdered By: Dr. Wolf on 08-10-2022 Cobalamin (Vitamin B12) [Mass/Vol] 863 pg/mL 211-911 [facility] No Panel InformationOrdered By: Dr. Wolf on 08-10-2022 Prostate Specific Antigen Screen 0.75 ng/mL 0.00-4.00 [facility] Comment on above: This test was perfor med using the TPSA assay method for [employer] chemistry system. Values obtained with differentassay methods cannot be used interchangably.When changing PSA assays in the course of monitoring apatient, additional sequential testing should be carriedout to confirm baseline values. Thyroid Stimulating Hormone (TSH) 2.17 uIU/mL 0.358-3.74 [facility] Glucose Glucometer (BldC) [M ass/Vol]Ordered By: Dr. Gunn on 08-07-2022 Glucose [Mass/Vol] 171 mg/dL 74-106 [facility] Comment on above: MANAGEMENT OF PATIEN T CARE PER NURSING PROTOCOL Basophil percentageOrdered B y: Dr. York on 08-03-2022 Chloride [Moles/Vol] 108 mmol/L 98-107 [facility] Glucose [Mass/Vol] 220 mg/dL 74-106 [facility] Comment on above: Glucose result great er than or equal to 200 mg/dLsuggests DIABETES MELLITUS per A.D.A. criteria. Potassium [Moles/Vol] 4.0 mmol/L 3.5-5.1 [facility] Sodium [Moles/Vol] 140 mmol/L 136-145 [facility] WBC (Bld) [#/Vol] 8.0 10*3/uL 4.4-11.0 [facility] Blood erythrocytes count (nu mber/volume)Ordered By: Dr. York on 08-03-2022 RBC (Bld) [#/Vol] 4.83 10*6/uL 4.6-6.[address] [facility] Blood hemoglobin measurement (mass/volume)Ordered By: Dr. York on 08-03-2022 Hemoglobin (Bld) [Mass/Vol] 14.4 g/dL 13.0-16.5 [facility] Blood platelet mean volumeOr dered By: Dr. York on 08-03-2022 Platelet mean volume (Bld) [Entitic vol] 9.9 fL 6.2-12.0 [facility] Determination of erythrocyte mean corpuscular volume (MCV)Ordered By: Dr. York on 08-03-2022 MCV (RBC) [Entitic vol] 89.2 fL 80-[address] [facility] Hematocrit Auto (Bld) [Volum e fraction]Ordered By: Dr. York on 08-03-2022 Hematocrit (Bld) [Volume fraction] 43.1 % 40-54 [facility] Laboratory - Chemistry and C hemistry - challengeOrdered By: Dr. York on 08-03-2022 CO2 [Moles/Vol] 24.0 mmol/L 21.0-32.0 [facility] Urea nitrogen/Creatinine [Mass ratio] 10.2 mg/mg 10-20 [facility] Laboratory - Hematology and Cell countsOrdered By: Dr. York on 08-03-2022 Erythrocyte distribution width (RBC) [Entitic vol] 43.4 fL 35.1-43.9 [facility] Erythrocyte distribution width (RBC) [Ratio] 13.2 % 11.6-14.6 [facility] MCH (RBC) [Entitic mass] 29.8 pg 27.0-32.0 [facility] MCHC Auto (RBC) [Mass/Vol]Or dered By: Dr. York on 08-03-2022 MCHC (RBC) [Mass/Vol] 33.4 g/dL 32-36 [facility] No Panel InformationOrdered By: Dr. York on 08-03-2022 Estimated GFR (MDRD) Amer 74 mL/min >60 [facility] Comment on above: GFR Calc Estimated GFR (MDRD) Non-Af Amer 61 mL/min >60 [facility] Comment on above: Non- GFR Calc No Panel InformationOrdered By: Dr. Wolf on 08-03-2022 Thyroid Stimulating Hormone (TSH) 1.84 uIU/mL 0.358-3.74 [facility] Platelets bldOrdered By: Dr. York on 08-03-2022 Platelets (Bld) [#/Vol] 161 10*3/uL 150-450 [facility] Serum or plasma calcium marquez urement (mass/volume)Ordered By: Dr. York on 08-03-2022 Calcium [Mass/Vol] 8.9 mg/dL 8.5-10.1 [facility] Serum or plasma creatinine m easurement (mass/volume)Ordered By: Dr. York on 08-03-2022 Creatinine [Mass/Vol] 1.27 mg/dL 0.70-1.30 [facility] Comment on above: The validity of the calculated GFR & GFRAA in patients over 70 years has not been determined. Clinical correlation is essential. Serum or plasma urea nitroge n measurement (mass/volume)Ordered By: Dr. York on 08-03-2022 Urea nitrogen [Mass/Vol] 13 mg/dL 7-18 [facility] Thin prep Papanicolaou smear with manual screeningOrdered By: Dr. York on 08-03-2022 Thin prep Papanicolaou smear with manual screening 8 5-15 [facility] Whole blood hemoglobin A1c/t otal hemoglobin ratio (mass fraction)Ordered By: Dr. York on 08-03-2022 HbA1c (Bld) [Mass fraction] 6.9 % 3.8-5.6 [facility] Comment on above: Normal < 5.7 % Predi abetic 5.7 - 6.4 % Diabetic >or= 6.5 % Please note range changes. Basophil percentageon 2021 Chloride [Moles/Vol] 109 mmol/L 98-107 [facility] Work Phone: Cholesterol [Mass/Vol] 108 mg/dL <200 [facility] Work Phone: Comment on above: <200 mg/dL Desirable 200-240 mg/dL Borderline >240 mg/dL High Risk Glucose [Mass/Vol] 141 mg/dL 74-106 [facility] Work Phone: Comment on above: Fasting Glucose resu lt greater than or equal to 126 mg/dL suggests DIABETES MELLITUS per A.D.A. criteria. Potassium [Moles/Vol] 4.2 mmol/L 3.5-5.1 [facility] Work Phone: Sodium [Moles/Vol] 141 mmol/L 136-145 [facility] Work Phone: Triglyceride [Mass/Vol] 142 mg/dL <[address] [facility] Work Phone: Comment on above: The drugs N-Acetylcy steine and Metamizole may falsely depress this assay.Serum Triglycerides Reference Interval Normal <150 mg/dL Borderline high 150 - 199 mg/dL High 200 - 499 mg/dL Very High > or = 500 mg/dL Laboratory - Chemistry and C hemistry - challengeon 03-01-2022 CO2 [Moles/Vol] 27.0 mmol/L 21.0-32.0 [facility] Work Phone: Urea nitrogen/Creatinine [Mass ratio] 10.7 mg/mg 10-20 [facility] Work Phone: No Panel Informationon 03-01 Estimated GFR (MDRD) Amer 77 mL/min >60 [facility] Work Phone: Comment on above: GFR Calc Estimated GFR (MDRD) Non-Af Amer 64 mL/min >60 [facility] Work Phone: Comment on above: Non- GFR Calc Serum or plasma calcium marquez urement (mass/volume)on 03-01-2022 Calcium [Mass/Vol] 8.8 mg/dL 8.5-10.1 [facility] Work Phone: Serum or plasma cholesterol in HDL measurement (mass/volume)on 03-01-2022 Cholesterol in HDL [Mass/Vol] 24 mg/dL >40 [facility] Work Phone: Comment on above: The drugs N-Acetylcy steine and Metamizole may falsely depress this assay. Reference Range HDL <40 mg/dL Low HDL Cholesterol HDL >or= 60 mg/dL High HDL Cholesterol Serum or plasma cholesterol in VLDL measurement (mass/volume)on 03-01-2022 Cholesterol in VLDL [Mass/Vol] 28 mg/dL 5-40 [facility] Work Phone: Serum or plasma creatinine m easurement (mass/volume)on 03-01-2022 Creatinine [Mass/Vol] 1.22 mg/dL 0.70-1.30 [facility] Work Phone: Comment on above: The validity of the calculated GFR & GFRAA in patients over 70 years has not been determined. Clinical correlation is essential. Serum or plasma low density lipoprotein (LDL) cholesterol measurement (mass/volume)on 03-01-2022 Cholesterol in LDL [Mass/Vol] 56 mg/dL 0-130 [facility] Work Phone: Serum or plasma urea nitroge n measurement (mass/volume)on 03-01-2022 Urea nitrogen [Mass/Vol] 13 mg/dL 7-18 [facility] Work Phone: Thin prep Papanicolaou smear with manual screeningon 03-01-2022 Thin prep Papanicolaou smear with manual screening 5 5-15 [facility] Work Phone: Basophil percentageon 2021 Bilirubin [Mass/Vol] 0.90 mg/dL 0.20-1.00 [facility] Work Phone: Comment on above: For patients on eltr ombopag therapy, use of Dimension [place] TBIL is not recommended. Chloride [Moles/Vol] 108 mmol/L 98-107 [facility] Work Phone: Cholesterol [Mass/Vol] 165 mg/dL <200 [facility] Work Phone: Comment on above: <200 mg/dL Desirable 200-240 mg/dL Borderline >240 mg/dL High Risk Glucose [Mass/Vol] 184 mg/dL 74-106 [facility] Work Phone: Comment on above: Fasting Glucose resu lt greater than or equal to 126 mg/dL suggests DIABETES MELLITUS per A.D.A. criteria. Potassium [Moles/Vol] 4.1 mmol/L 3.5-5.1 [facility] Work Phone: Protein [Mass/Vol] 6.7 g/dL 6.4-8.2 [facility] Work Phone: Sodium [Moles/Vol] 140 mmol/L 136-145 [facility] Work Phone: Triglyceride [Mass/Vol] 210 mg/dL <[address] [facility] Work Phone: Comment on above: The drugs N-Acetylcy steine and Metamizole may falsely depress this assay.Serum Triglycerides Reference Interval Normal <150 mg/dL Borderline high 150 - 199 mg/dL High 200 - 499 mg/dL Very High > or = 500 mg/dL Laboratory - Chemistry and C hemistry - challengeon 09-13-2021 ALP [Catalytic activity/Vol] 55 U/L 45-117 [facility] Work Phone: ALT [Catalytic activity/Vol] 50 U/L 16-61 [facility] Work Phone: CO2 [Moles/Vol] 27.0 mmol/L 21.0-32.0 [facility] Work Phone: Cobalamin (Vitamin B12) [Mass/Vol] 931 pg/mL 211-911 [facility] Work Phone: Globulin (S) [Mass/Vol] 3.0 g/dL 2.2-4.[address] [facility] Work Phone: Urea nitrogen/Creatinine [Mass ratio] 11.8 mg/mg 10-20 [facility] Work Phone: No Panel Informationon 09-13 Estimated GFR (MDRD) Amer 74 mL/min >60 [facility] Work Phone: Comment on above: GFR Calc Estimated GFR (MDRD) Non-Af Amer 61 mL/min >60 [facility] Work Phone: Comment on above: Non- GFR Calc Prostate Specific Antigen Screen 0.80 ng/mL 0.00-4.00 [facility] Work Phone: Comment on above: This test was perfor med using the TPSA assay method for the[employer] chemistry system. Values obtained with differentassay methods cannot be used interchangably.When changing PSA assays in the course of monitoring apatient, additional sequential testing should be carriedout to confirm baseline values. Vitamin D 25-Hydroxy 45.6 ng/mL [facility] Work Phone: Comment on above: Vitamin D 25(OH) Sta tus Range Deficiency <20 ng/mL (50nmol/L) Insufficiency 20 - 30 ng/mL (50 - 75 nmol/L) Sufficiency 30 - 100 ng/mL (75 - 250 nmol/L) Toxicity >100 ng/mL (>250 nmol/L) Serum or plasma albumin marquez urement (mass/volume)on 09-13-2021 Albumin [Mass/Vol] 3.7 g/dL 3.2-5.0 [facility] Work Phone: Serum or plasma albumin/glob ulin mass ratioon 09-13-2021 Albumin/Globulin [Mass ratio] 1.2 {ratio} 0.9-2.4 [facility] Work Phone: Serum or plasma calcium marquez urement (mass/volume)on 09-13-2021 Calcium [Mass/Vol] 9.0 mg/dL 8.5-10.1 [facility] Work Phone: Serum or plasma cholesterol in HDL measurement (mass/volume)on 09-13-2021 Cholesterol in HDL [Mass/Vol] 38 mg/dL >40 [facility] Work Phone: Comment on above: The drugs N-Acetylcy steine and Metamizole may falsely depress this assay. Reference Range HDL <40 mg/dL Low HDL Cholesterol HDL >or= 60 mg/dL High HDL Cholesterol Serum or plasma cholesterol in VLDL measurement (mass/volume)on 09-13-2021 Cholesterol in VLDL [Mass/Vol] 42 mg/dL 5-40 [facility] Work Phone: Serum or plasma creatinine m easurement (mass/volume)on 09-13-2021 Creatinine [Mass/Vol] 1.27 mg/dL 0.70-1.30 [facility] Work Phone: Comment on above: The validity of the calculated GFR & GFRAA in patients over 70 years has not been determined. Clinical correlation is essential. Serum or plasma low density lipoprotein (LDL) cholesterol measurement (mass/volume)on 09-13-2021 Cholesterol in LDL [Mass/Vol] 85 mg/dL 0-130 [facility] Work Phone: Serum or plasma urea nitroge n measurement (mass/volume)on 09-13-2021 Urea nitrogen [Mass/Vol] 15 mg/dL 7-18 [facility] Work Phone: Thin prep Papanicolaou smear with manual screeningon 09-13-2021 Thin prep Papanicolaou smear with manual screening 28 U/L 15-37 [facility] Work Phone: Thin prep Papanicolaou smear with manual screening 5 5-15 [facility] Work Phone: Vital Signs Date Time Vital Sign Value Performing Clinician Josephinei adriana 09-17-2024 11:32-0400 Body height 177.[address] Sohail Wolf MD Work Phone: [facility] 09-17-2024 11:32-0400 Body mass index (BMI) [Ratio] 34.4 kg/m2 Dr. Sohail Wolf MD Work Phone: [facility] 09-17-2024 11:32-0400 Body weight 108.[address] Sohail Wolf MD Work Phone: [facility] 09-17-2024 11:32-0400 Diastolic blood pressure 83 mm[Hg] Dr. Sohail Wolf MD Work Phone: [facility] 09-17-2024 11:32-0400 Heart rate 64 /min Dr. Sohail Wolf MD Work Phone: [facility] 09-17-2024 11:32-0400 Respiratory rate 16 /min Dr. Sohail Wolf MD Work Phone: [facility] 09-17-2024 11:32-0400 Systolic blood pressure 119 mm[Hg] Dr. Sohail Wolf MD Work Phone: [facility] 03-22-2023 07:14-0500 Body height 177.[address] Juan Wolf Work Phone: [facility] 03-22-2023 07:14-0500 Body weight 121.[address] Juan Wolf Work Phone: [facility] 03-21-2023 10:09-0500 Body mass index (BMI) [Ratio] 38.4 kg/m2 Dr. Juan Wolf Work Phone: [facility] 03-14-2023 13:23-0500 Body height 177.[address] Juan Wolf Work Phone: [facility] 03-14-2023 13:23-0500 Body mass index (BMI) [Ratio] 38.5 kg/m2 Dr. Juan Wolf Work Phone: [facility] 03-14-2023 13:23-0500 Body weight 121.[address] Juan Wolf Work Phone: [facility] 03-14-2023 13:23-0500 Diastolic blood pressure 94 mm[Hg] Dr. Juan Wolf Work Phone: [facility] 03-14-2023 13:23-0500 Heart rate 75 /min Dr. Juan Wolf Work Phone: [facility] 03-14-2023 13:23-0500 Respiratory rate 16 /min Dr. Juan Wolf Work Phone: [facility] 03-14-2023 13:23-0500 Systolic blood pressure 156 mm[Hg] Dr. Juan Wolf Work Phone: [facility] 09-19-2022 07:13-0400 Body temperature 98.9 [degF] Dr. Juan Wolf Work Phone: [facility] 09-19-2022 07:13-0400 Diastolic blood pressure 85 mm[Hg] Dr. Juan Wolf Work Phone: [facility] 09-19-2022 07:13-0400 Heart rate 59 /min Dr. Juan Wolf Work Phone: [facility] 09-19-2022 07:13-0400 Respiratory rate 16 /min Dr. Juan Wolf Work Phone: [facility] 09-19-2022 07:13-0400 SaO2% (BldA) [Mass fraction] 92 % Dr. Juan Wolf Work Phone: [facility] 09-19-2022 07:13-0400 Systolic blood pressure 113 mm[Hg] Dr. Juan Wolf Work Phone: [facility] 09-19-2022 05:59-0400 Body height 177.[address] Juan Wolf Work Phone: [facility] 09-19-2022 05:59-0400 Body mass index (BMI) [Ratio] 36.6 kg/m2 Dr. Juan Wolf Work Phone: [facility] 09-19-2022 05:59-0400 Body weight [address] Juan Wolf Work Phone: [facility] 08-14-2022 08:28-0400 Body height 177.[address] Juan Wolf Work Phone: [facility] 08-14-2022 08:28-0400 Body mass index (BMI) [Ratio] 36.6 kg/m2 Dr. Juan Wolf Work Phone: [facility] 08-14-2022 08:28-0400 Body weight 115.[address] Juan Wolf Work Phone: [facility] 08-07-2022 10:26-0400 Body temperature 97 [degF] [facility] 08-07-2022 10:26-0400 Diastolic blood pressure 91 mm[Hg] [facility] 08-07-2022 10:26-0400 Heart rate 57 /min [facility] 08-07-2022 10:26-0400 Respiratory rate 16 /min [facility] 08-07-2022 10:26-0400 SaO2% (BldA) [Mass fraction] 94 % [facility] 08-07-2022 10:26-0400 Systolic blood pressure 163 mm[Hg] [facility] 08-07-2022 07:46-0400 Body height 177.8 cm [facility] 08-07-2022 07:46-0400 Body mass index (BMI) [Ratio] 37 kg/m2 [facility] 08-07-2022 07:46-0400 Body weight 117.02 kg [facility] Encounters Encounter Date Encounter Type Care Provider Facility Start: 10-02-2024 ambulatory Navi Jay NP Facility :[facility] Start: 09-17-2024 End: 09-17-2024 Patient encounter procedure Navi Jay [employer] -[facility] Work Phone: Start: 09-17-2024 End: 09-17-[address] Sohail Wolf MD Work Phone: -[facility] Start: 07-16-2024 ambulatory Navi Jay NP Facility :[facility] Start: 07-16-2024 Non-patient / Non-visit Dr. Shakeel Ervin MD -[facility] Start: 07-16-2024 End: 07-16-[address] Sohail Wolf MD Work Phone: [facility] Work Phone: Start: 07-16-2024 End: 07-16-2024 Patient encounter procedure Navi Jay [employer]-C -Cardiovascular Services Work Phone: Start: 07-16-2024 End: 07-16-2024 ambulatory Navi Jay NP Facility:[facility] Start: 03-20-2024 End: 03-20-2024 ambulatory Navi Jay NP Facility:[facility] Start: 02-12-2024 End: 02-12-2024 ambulatory Sohail Wolf Facility:[facility] Start: 03-22-2023 End: 03-22-2023 Admission to same day surgery center Dr. Juan Wolf Work Phone: [facility]-Golf Instructor/Special Procedures Work Phone: Start: 03-22-2023 End: 03-22-[address] Juan Wolf Work Phone: [facility] Work Phone: Start: 03-14-2023 End: 03-14-[address] uJan Wolf Work Phone: [facility] Work Phone: Start: 03-14-2023 End: 03-14-[address] Juan Wolf Work Phone: [facility]-Radiology, [facility] Work Phone: Start: 03-14-2023 End: 03-14-[address] Juan Wolf Work Phone: [facility] Work Phone: Start: 02-09-2023 Non-patient / Non-visit Dr. Juan Wolf Work Phone: [facility] Start: 02-08-2023 End: 02-08-[address] Juan Wolf Work Phone: [facility] Work Phone: Start: 02-08-2023 End: 02-08-[address] Juan Wolf Work Phone: [facility]-Pulmonary Services/Neurology Work Phone: Start: 02-01-2023 End: 02-01-[address] Juan Wolf Work Phone: [facility] Work Phone: Start: 02-01-2023 End: 02-01-[address] Juan Wolf Work Phone: [facility]-Laboratory, [place] Work Phone: Start: 01-01-2023 End: 01-01-[address] Juan Wolf Work Phone: [facility] Work Phone: Start: 01-01-2023 End: 01-01-[address] Juan Wolf Work Phone: [facility]-Sleep Lab Work Phone: Start: 12-08-2022 Non-patient / Non-visit Dr. Juan Wolf Work Phone: [facility] Start: 12-08-2022 End: 12-08-[address] Juan Wolf Work Phone: [facility] Work Phone: Start: 12-08-2022 End: 12-08-[address] Juan Wolf Work Phone: [facility]-Cardiovascula r Services Work Phone: Start: 09-19-2022 Non-patient / Non-visit Dr. Juan Wolf Work Phone: [facility] Start: 09-19-2022 End: 09-19-2022 Admission to same day surgery center Dr. Juan Wolf Work Phone: [facility]-Endoscopy Work Phone: Start: 08-23-2022 Non-patient / Non-visit Dr. Juan Wolf Work Phone: [facility] Start: 08-23-2022 End: 08-23-[address] Juan Wolf Work Phone: [facility] Work Phone: Start: 08-23-2022 End: 08-23-[address] Juan Wolf Work Phone: [facility]-Cardiovascula r Services Start: 08-14-2022 Non-patient / Non-visit Dr. Juan Wolf Work Phone: [facility] Start: 08-10-2022 End: 08-10-[address] Juan Wolf Work Phone: [facility] Work Phone: Start: 08-10-2022 End: 08-10-2022 Patient encounter procedure Dr. Juan Wolf Work Phone: [facility] Start: 08-07-2022 End: 08-07-2022 Admission to same day surgery center [facility] Start: 08-07-2022 End: 08-07-2022 ambulatory [facility] Work Phone: Start: 06-13-2022 End: 06-13-2022 Patient encounter procedure [facility] Start: 03-01-2022 End: 03-01-2022 ambulatory [facility] Work Phone: Start: 03-01-2022 End: 03-01-2022 Patient encounter procedure [facility] Start: 09-13-2021 End: 09-13-2021 Patient encounter procedure [facility] Procedures Date Procedure Procedure Detail Performing Clinician Start: 07-16-2024 Radionuclide imaging of perfusion of myocardium under exercise stress Dr. Sohail Wolf MD Work Phone: Start: 03-14-2023 Plain chest X-ray Dr. Olivia Wolf Work Phone: Start: 12-08-2022 Radionuclide imaging of perfusion of myocardium under exercise stress Dr. Juan Wolf Work Phone: Start: 08-07-2022 Functional Endoscopo ic Sinus Surgery (Not Applicable) Start: 06-13-2022 CT of face Plan of Treatment Date Care Activity Detail Author Start: 03-22-2023 Patient discharge [facility] Start: 09-19-2022 Colonoscopy w/biopsy single/multiple COLONOSCOPY AND BIOPSY [facility] Start: 09-19-2022 Patient discharge [facility] Start: 08-07-2022 Anesthesia nose & accessory sinuses nos ANESTH NOSE/SINUS SURGERY [facility] Start: 08-07-2022 Excision nasal polyp simple REMOVAL OF NOSE POLYP(S) [facility] Start: 08-07-2022 Nasal/sinus ndsc w/total ethoidectomy NSL/SINS NDSC W/TOT ETHMDCT [facility] Start: 08-07-2022 Nsl/sinus ndsc max antrost w/rmvl tiss max sinus ENDOSCOPY MAXILLARY SINUS [facility] Start: 08-07-2022 Ambulation without limitation [facility] Start: 08-07-2022 Medical regimen orders management [facility] Start: 08-07-2022 Patient discharge [facility] Start: 08-07-2022 Procedure discontinued [facility] Start: 08-07-2022 Taking patient vital signs [facility] Start: 08-07-2022 Vital signs measurements [facility] Start: 08-07-2022 Medication education [facility] Catheterization of l eft heart [facility] Patient referral [facility] Work Phone: Thyroid stimulating hormone measurement [facility] Payers Date Payer Category Payer Unknown [id number] 2024 Self-pay [id number] [id number] Unknown [id number] Unknown [id number] [id number] [id number] Unknown [id number] [id number] [id number] Unknown [id number] 2.16.8 [id number] Unknown [id number] 2.16.8 [id number] Unknown [id number] 2.16.8 [id number] Unknown [id number] 2.16.8 [id number] Social History Date Type Detail Facility Start: 12-15-2020 End: 03-22-2023 Tobacco smoking status TNIS Unknown if ever smoked [facility] Start: 1960 Sex Assigned At Male [facility] Start: 03-20-2024 Tobacco smoking stat us TNIS Never smoked tobacco (finding) [facility] Medical Equipment Procedure Code Equipment Code Equipment Origin al Text Equipment Identifier Dates FESS (functional endoscopic sinus surgery) Plant polysaccharide haemostatic agent, bioabsorbable [id number] [facility] Start: 08-07-2022 Goals Date Patient Goal Desired Activity /State Mental Status Date Assessment Result Facility 09-19-2022 Cognitive function Voice/Name [facility] Work Phone: 08-07-2022 Cognitive function Level Of Cons ciousness Follows Commands;Drowsy [facility] Work Phone: 08-07-2022 Cognitive function Voice/Name [facility] Work Phone: Evaluation note 09-17-2024 Note Date & Type Note Facility 09-17-2024 Evaluation note Diagnosis Onset Date Resolution Aortic stenosis acute September 10:52am Chest pain acute September 17 10:52am Diabetes acute September 17 10:52am High blood cholesterol acute Ju 2024 10:52am [facility] Work Phone: Procedure note 02-09-2023 Note Date & Type Note Facility 02-09-2023 Procedure note [facility] Discharge summary 08-07-2022 Note Date & Type Note Facility 08-07-2022 Discharge summary Note Date/Time August 07, 2022 8:59a m [facility] Medical Records Department [address] [place] [address] Discharge Summary 08/07/22 0858 MR#: [id number] Acct: [id number] Name: LINDSAY WEIRN Rep #:[id number] : 1960 62 From: Freddy Gunn MD PCP: Dr. Juan Wolf MD Status: [facility] Location: [place] [address] Providers Primary Care Physician: Dr. Juan Wolf MD Reason For Visit: FESS W NAVIGATION Medications at Discharge Home Medications atorvastatin 20 mg tablet 20 mg PO DAILY 10/05/20 metformin 500 mg tablet,extended release 24 hr 500 mg PO BID 10/05/20 semaglutide 7 mg tablet (Rybelsus) 7 mg PO DAILY 08/01/22 Weight / BMI Weight Weight: 117.027 kg Body Mass Index (BMI) 37.0 ABG / Lab / Microbiology Data Result Diagrams: 08/03/22 13:15 08/03/22 13:15 Laboratory: Laboratory Results - last 24 hr 08/07/22 07:35: POC Glucose 164 H D/C Instructions Discharge Diet: No restrictions Additional Activity Instructions: No nose blowing Additional Instructions: Start antibiotic tonight. Start irrigation tomorrow morning. Irrigate 4x/day Please Follow Up With: Freddy Gunn MD When: next week Meaningful Use Info Meaningful Use Diagnoses (Choose all that apply): None applicable Discharge Plan Admission Attending Provider: Freddy Gunn Primary Care Provider: Juan Wolf Discharge Orders/Prescriptions Prescriptions: No Action atorvastatin 20 mg tablet 20 mg PO DAILY metformin 500 mg tablet extended release 24 hr 500 mg PO BID Label Comments: TAKE 1 TABLET BY MOUTH TWICE A DAY Rybelsus 7 mg Tablet 7 mg PO DAILY Referrals / Follow Up: Juan Wolf MD [Primary Care Provider] - Disposition Disposition (needs filled in before D/C Order can be placed): Home, Self Care 08/07/22 0859 <Electronically signed by Freddy Gunn MD> Cosigner Signature (if applicable): CC: Dr. Juan Wolf MD; Dr. Freddy Gunn MD~ Signed [facility] Work Phone: Procedure note 08-07-2022 Note Date & Type Note Facility 08-07-2022 Procedure note [facility] Evaluation note Note Date & Type Note Facility Evaluation note No assessment information availa ble [facility] Work Phone: Evaluation note Note Date & Type Note Facility Evaluation note Diagnosis Onset Date Personal history of colonic polyps acute [facility] Work Phone: Evaluation note Note Date & Type Note Facility Evaluation note Diagnosis Onset Date Aortic stenosis acute Chest pain acute [facility] Work Phone: Reason for referral (narrative) Note Date & Type Note Facility Reason for referral (narrative) No reason for referral information available [facility] Work Phone: Chief Complaint and Reason for Visit Chief Complaint EORDER Chief Complaint CHRONIC SINUSITIS, P OLYP OF NASAL CAVITY FESS W NAVIGATION Chief Complaint CHRONIC SINUSITIS, P OLYP OF NASAL CAVITY FESS W NAVIGATION EORDER Amb Documentation Chief Complaint CHRONIC SINUSITIS, P OLYP OF NASAL CAVITY FESS W NAVIGATION EORDER Amb Documentation MURMUR Chief Complaint MURMUR CP CP Reason for Visit Personal history of colonic polyps Chief Complaint CP CP Hypersomnia, unspecified Reason for Visit Personal history of colonic polyps Chief Complaint CP CP Hypersomnia, unspecified Chief Complaint CP CP Hypersomnia, unspecified DYSPNEA DYSPNEA Chief Complaint CP CP Hypersomnia, unspecified DYSPNEA DYSPNEA DYSPNEA / AORTIC STENOSIS (MARYANN) EORDERS Reason for Visit Aortic stenosis Chest pain Chief Complaint CP CP Hypersomnia, unspecified DYSPNEA DYSPNEA DYSPNEA / AORTIC STENOSIS (MARYANN) EORDERS CHEST PAIN Reason for Visit Aortic stenosis Chest pain Chief Complaint Admit Date DOT PHYSICAL July 16, 2024 6:49a m DOT PHYSICAL July 16, 2024 5:11p m Chief Complaint Admit Date DOT PHYSICAL July 16, 2024 6:49a m DOT PHYSICAL July 16, 2024 5:11p m 6 M FU September 17, 2024 10:5 2am Reason for Visit Admit Date Aortic stenosis September 17, 2024 10:5 2am Chest pain September 17, 2024 10:5 2am Diabetes September 17, 2024 10:5 2am High blood cholesterol September 17, 2024 1 0:52am Family History No Family History Records Found Relationship Condition Age at Onset Recorded Date/T aletha mother Cardiac disease Unknown Hypertension Unknown High blood cholesterol Unknown Autoimmune disease Unknown father Kidney disorder Unknown Advance Directives No Advanced Directives Records Found Advance Directive Response Recorded Date/ Time Living Will No August 01, 2022 2 :56pm Power of Glove Turner And Former No August 01, 2022 2:56pm Advance Directive Response Recorded Date/ Time Living Will No September 18, 2022 9:18am Power of Glove Turner And Former No September 18 9:18am Advance Directive Response Recorded Date/ Time Living Will No September 18, 2022 8:18am Power of Glove Turner And Former No September 18 8:18am Advance Directive Response Recorded Date/ Time Advance Directives No March 22, 2023 7:14am Living Will No March 22 7:14am Power of Glove Turner And Former No March 22, 2023 7:14am Advance Directive Response Recorded Date/ Time Advance Directives No March 22, 2023 8:14am Summary Purpose Additional Source Comments Goals (unrecognized section and content) Goals may be documented in a n alternate sectionGoals may be documented in an alternate sectionGoals may be documented in an alternate sectionGoals may be documented in an alternate sectionGoals may be documented in an alternate sectionGoals may be documented in an alternate sectionGoals may be documented in an alternate section Care Teams (unrecognized sec tion and content) Team Status: Active Member Role Status Dates Dr. Juan Wolf MD Family Provider Active Dr. Juan Wolf MD Primary Care Provider Activ e Team Status: Inactive Member Role Status Dates Dr. Juan Wolf MD Primary Care Provider Activ e Dr. Freddy Gunn MD Attending Provider, Referring Pr kiki Active Team Status: Active Member Role Status Dates Dr. Juan Wolf MD Primary Care Provider Activ e Darlene Orta Attending Provider Active Team Status: Inactive Member Role Status Dates Dr. Juan Wolf MD Primary Care Provider, Attending Provider, Referring Provider Active Team Status: Active Member Role Status Dates Dr. Juan Wolf MD Primary Care Provider Activ e Dr. Donald Ervin MD Attending Provider Active Team Status: Active Member Role Status Dates Dr. Juan Wolf MD Primary Care Provider, Refe rring Provider Active Dr. Donald Ervin MD Attending Provider Active Team Status: Active Member Role Status Dates Dr. Juan Wolf MD Primary Care Provider, Refe rring Provider Active Dr. Georges Arroyo MD Attending Provider, Other Prov ider Active Team Status: Active Member Role Status Dates Dr. Juan Wolf MD Primary Care Provider, Referring Provider, Other Provider Active Dr. Shakeel Ervin MD Attending Provider Active Team Status: Inactive Member Role Status Dates Dr. Juan Wolf MD Primary Care Provider, Refe rring Provider Active Dr. Georges Arroyo MD Attending Provider Active Team Status: Inactive Member Role Status Dates Dr. Juan Wolf MD Primary Care Provider, Atte nding Provider Active Team Status: Active Member Role Status Dates Dr. Juan Wolf MD Primary Care Provider, Referring Provider, Other Provider Active Dr. Fabian Tripp MD Attending Provider Active Team Status: Inactive Member Role Status Dates Dr. Juan Wolf MD Primary Care Provider, Refe rring Provider Active Dr. Shakeel Ervin MD Attending Provider Active Team Status: Inactive Member Role Status Dates Dr. Juan Wolf MD Primary Care Provider Activ e Dr. Shakeel Ervin MD Attending Provider, Referring Pro vider Active Team Status: Active Member Role Status Dates Dr. Sohail Wolf MD Primary Care Provider Acti ve Team Status: Inactive Member Role Status Dates Dr. Sohail Wolf MD Primary Care Provider Acti ve Start: July 16, 2024 End: July 16, 2024 Navi Jay TRACK SUBWAY REPAIR SUPERVISOR, TRACK SUBWAY REPAIR SUPERVISOR-C Attending Provider Active S tart: July 16, 2024 End: July 16, 2024 Navi Jay TRACK SUBWAY REPAIR SUPERVISOR, TRACK SUBWAY REPAIR SUPERVISOR-C Referring Provider Active S tart: July 16, 2024 End: July 16, 2024 Team Status: Active Member Role Status Dates Dr. Sohail Wolf MD Primary Care Provider Acti ve Start: July 16, 2024 Navi Jay TRACK SUBWAY REPAIR SUPERVISOR, TRACK SUBWAY REPAIR SUPERVISOR-C Referring Provider Active S tart: July 16, 2024 Navi Jay TRACK SUBWAY REPAIR SUPERVISOR, TRACK SUBWAY REPAIR SUPERVISOR-C Other Provider Active Start : July 16, 2024 Dr. Shakeel Ervin MD Attending Provider Active S tart: July 16, 2024 Team Status: Active Member Role/Relationship Status Dates Dr. Sohail Wolf MD Primary Care Provider Acti ve Team Status: Inactive Member Role/Relationship Status Dates Dr. Sohail Wolf MD Primary Care Provider Acti ve Start: July 16, 2024 End: July 16, 2024 Navi Jay TRACK SUBWAY REPAIR SUPERVISOR, TRACK SUBWAY REPAIR SUPERVISOR-C Attending Provider Active S tart: July 16, 2024 End: July 16, 2024 Navi Jay TRACK SUBWAY REPAIR SUPERVISOR, TRACK SUBWAY REPAIR SUPERVISOR-C Referring Provider Active S tart: July 16, 2024 End: July 16, 2024 Team Status: Active Member Role/Relationship Status Dates Dr. Sohail Wolf MD Primary Care Provider Acti ve Start: July 16, 2024 Navi Jay TRACK SUBWAY REPAIR SUPERVISOR, TRACK SUBWAY REPAIR SUPERVISOR-C Referring Provider Active S tart: July 16, 2024 Navi Jay TRACK SUBWAY REPAIR SUPERVISOR, TRACK SUBWAY REPAIR SUPERVISOR-C Other Provider Active Start : July 16, 2024 Dr. Shakeel Ervin MD Attending Provider Active S tart: July 16, 2024 Team Status: Inactive Member Role/Relationship Status Dates Dr. Sohail Wolf MD Primary Care Provider Acti ve Start: September 17, 2024 End: September 17, 2024 Dr. Sohail Wolf MD Referring Provider Active Start: September 17, 2024 End: September 17, 2024 Navi Jay TRACK SUBWAY REPAIR SUPERVISOR, TRACK SUBWAY REPAIR SUPERVISOR-C Attending Provider Active S tart: September 17, 2024 End: September 17, 2024 (unrecognized sect ion and content) No Status Records Found INFORMATION SOURCE (unrecogn ized section and content) DATE CREATED AUTHOR 09/25/2024 [facility] FOR RECORDS PERTAINING TO PATIENTS WHO ARE OR HAVE BEEN ENROLLED IN A CHEMICAL DEPENDENCY/SUBSTANCEABUSE PROGRAM, SOME INFORMATION MAY BE OMITTED. This clinical summary was aggregated from multiple sources. Caution should be exercised in using it in the provision of clinical care. This summary normalizes information from multiple sources, and as a consequence, information in this document may materially change the coding, format and clinical context of patient data. In addition, data may be omitted in some cases. CLINICAL DECISIONS SHOULD BE BASED ON THE PRIMARY CLINICAL RECORDS. [facility] [employer] [facility]. provides no warranty or guarantee of the accuracy or completeness of information in this document.
== END | disposition home or self-care (01) ==
LOC: CVS 06:50
PROVIDERS: PCP Family Medicine; Referring Provider Nurse Practitioner Family; Visit Provider Nurse Practitioner Family
DX: I35.0 Nonrheumatic aortic (valve) stenosis (principal); R06.09 Other forms of dyspnea
CPT/HCPCS: 93306

== ENCOUNTER → 2024-11-25 | Outpatient (CLI) | payer BC, SELFPAY ==
[2024-11-25 15:53] LABS: AST(SGOT) 23 U/L (<=37); Alanine Aminotransfer ALT/SGPT 23 U/L (<=46); Albumin, Serum 4.2 g/dL (3.4-4.8); Alkaline Phosphatase 62 U/L (40-129); Anion Gap 14 (5-15); BUN 14 mg/dL (4-19); BUN/Creat Ratio 11.3 RATIO (10-20); Calcium,Total 9.4 mg/dL (7.6-11.0); Carbon Dioxide 18.8 mmol/L (21.0-32.0); Chloride 107 mmol/L (98-108); Cholesterol 170 mg/dL (<=200); Globulin 2.3 g/dL (2.2-4.2); Glucose 119 mg/dL (70-99); Low Density Lipoprotein Calc. 88 mg/dL; Potassium 4.0 mmol/L (3.3-5.1); Triglycerides 216 mg/dL; Very Low Density Lipoprotein 43 mg/dL (5-40); cholesterol:hdl ratio screen 4.35
[2024-11-25 15:56] LABS: PSA,Total - Annual Screen 0.67 ng/mL (0.02-4.00); Vitamin B12 831 pg/mL (180-914); Vitamin D,25 Hydroxy 43.0 ng/mL (30-100)
== END | disposition home or self-care (01) ==
LOC: MTLAB 11:48
PROVIDERS: PCP Family Medicine; Referring Provider Family Medicine; Visit Provider Family Medicine
DX: E11.9 Type 2 diabetes mellitus without complications (principal); Z12.5 Encounter for screening for malignant neoplasm of prostate
CPT/HCPCS: 36415; 80053; 80061; 82306; 82607; 84153; 84403; 84443; G0103